=== PATIENT | female | born 1960 | race Caucasian/White ===

== ENCOUNTER 2016-11-11 07:59 | Emergency (ER) | payer OTHER ==
[~2016-11-11] VITALS: Ht 167.6 cm; Wt 65.9 kg
[~2016-11-11 07:59] MED LIST: BIOT1CAP8 PO; CALC600T9 PO; GABA-113 PO
[2016-11-11 08:01] VITALS: TEMP 36.9; Ht 167.6 cm; Wt 65.9 kg
[2016-11-11] MEDS ORDERED: LORAZEPAM 1 MG TAB SL STA (08:22)
[2016-11-11 08:46] LABS: BASO % 0.8 %; BASO ABS # 0.05 K/uL (0-0.2); COMPLETE YES; HEMATOCRIT 43.2 % (37-47); IG% 0.3 %; LYMPH % 27.9 %; LYMPH ABS # 1.73 K/uL (1.2-3.4); MEAN CORPUSCULAR HEMOGLOBIN 33.3 pg (25-34); MEAN CORPUSCULAR HGB CONC 34.7 g/dl (32-36); MEAN PLATELET VOLUME 9.8 fL (7.4-10.4); MONO % 5.5 %; NEUT % 61.5 %; PLATELET COUNT 248 K/uL (130-400); WHITE BLOOD COUNT 6.21 K/uL (4.8-10.8)
[2016-11-11] MEDS ORDERED: NORE1TAB34 PO (08:47)
--- NOTE | 2016-11-11 08:56 | DIAGNOSTIC IMAGING REPORT ---
SINGLE VIEW CHEST CLINICAL HISTORY: Atypical chest pain. Dyspnea. FINDINGS: An AP, portable, upright chest radiograph is obtained. No prior studies are available for comparison at the time of dictation. The examination is mildly degraded by portable technique and patient rotation. The cardiomediastinal silhouette is unremarkable. The lungs and pleural spaces are clear. No pneumothorax is seen. The skeletal structures appear osteopenic. The bony thorax is grossly intact. IMPRESSION: No active disease in the chest. Electronically signed by: Dex Armstrong M.D. 11/11/2016 8:55 AM Dictated Date/Time: 11/11/2016 8:54 AM
[2016-11-11 09:07] LABS: BUN/CREATININE RATIO 8.8 (10-20); CALCIUM 9.4 mg/dl (8.5-10.1); CREATININE 1.1 mg/dl (0.60-1.20); POTASSIUM 3.9 mmol/L (3.5-5.1)
[2016-11-11 09:12] LABS: CKMB/CK RATIO 0.9 (0-3.0)
[2016-11-11] MEDS ORDERED: ATV/1 PO (09:58)
[2016-11-11 10:46] VITALS: BP 118/79; PULSE 90; O2SAT 98
--- NOTE | 2016-11-11 16:16 | EMERGENCY ROOM VISIT NOTE ---
History First contact with patient: 08:09 Chief Complaint: CHEST PAIN Stated Complaint: CHEST PAINS, SOB, LIGHTHEADED, NAUSEA Nursing Triage Summary: Pt c/o chest heaviness and pain since last night, mid chest. SOB, nausea, lightheadedness. Cough, non productive History of Present Illness The patient is a 55 year old female who presents to the Emergency Room with complaints of chest pressure, shortness of breath, lightheadedness and nonproductive cough. The patient reports that she did have mild symptoms last evening. When she awoke this morning, the symptoms were worse. The patient reports that she has had pleurisy in the past, and reports that this almost feels the same. She denies any headaches, neck pain, significant sinus congestion, runny nose or sore throat. She rates her overall discomfort a 6 out of 10. Review of Systems HEENT: Denies visual problems, hearing loss, tinnitus. Denies difficulty swallowing or oral lesions. PULMONARY: Denies sputum production or hemoptysis. CARDIOVASCULAR: Denies palpitations, dyspnea on exertion, orthopnea or peripheral edema. GASTROINTESTINAL: Denies diarrhea, constipation, nausea, vomiting, or abdominal pain. GENITOURINARY: Denies dysuria, frequency, urgency or nocturia. NEUROLOGIC: Denies history of epilepsy, CVA, TIA or chronic headaches. MUSCULOSKELETAL: Denies history of joint tenderness/swelling. SKIN: Denies rashes or lesions. PSYCHIATRIC: Denies history of depression or mental illness. ENDOCRINE: Denies history of diabetes or thyroid disorders. Past Medical/Surgical History Medical Problems: (1) Lumbago (2) Nuclear Cataract (3) Postlaminect Synd-Cerv Surgical Problems: (1) History of cervical spinal surgery Family History FH: breast cancer FH: diabetes mellitus FH: heart disease Social History Smoking Status: Never Smoker Alcohol Use: occasionally Marital Status: Housing Status: lives with family Occupation Status: employed Current/Historical Medications Scheduled Biotin (Biotin), 1 CAP PO QAM Calcium Carbonate-Vitamin D (Calcium + D), 1 TAB PO QAM Gabapentin (Neurontin), 300 MG PO BID Norethindrone Acetate-Ethinyl (Jinteli), 1 TAB PO DAILY Scheduled PRN Lorazepam (Ativan), 1 TAB PO Q6H PRN for Anxiety Allergies Coded Allergies: Sulfa Drugs (Verified Allergy, Unknown, HIVES, 11/11/16) Uncoded Allergies: CRABS (Allergy, Unknown, SWELLING, 10/01/15) Physical Exam Vital Signs Date Time Temp Pulse Resp B/P Pulse Ox O2 Delivery O2 Flow Rate FiO2 11/11/16 10:46 90 18 118/79 98 11/11/16 08:24 106 11/11/16 08:04 97 Room Air 11/11/16 08:01 36.9 113 20 132/70 98 Room Air Physical Exam CONSTITUTIONAL: Healthy and well nourished. Alert and oriented X 3 with positive affect. Patient does not appear in any acute distress on exam. HEENT: Normocephalic, atraumatic. Pupils equal, round and reactive. Ears and nares are clear. OROPHARYNX: No posterior pharyngeal erythema or tonsillar hypertrophy. Mucous membranes are moist. NECK: Full active range of motion without discomfort. No JVD or carotid bruits. No nuchal rigidity. RESPIRATORY: Clear to auscultation bilaterally with no wheezing, crackles, rhonchi or stridor. CARDIOVASCULAR: Regular rate and rhythm with no murmurs, rubs or gallops. GASTROINTESTINAL: Bowel sounds present in all quadrants. Soft and nontender to palpation. MUSCULOSKELETAL: Full range of motion of all joints without discomfort. INTEGUMENTARY: No rash or other significant dermatologic conditions noted. HEMATOLOGIC: No ecchymosis or petechiae noted. NEUROLOGIC: No focal neurologic deficits noted. Medical Decision & Procedures ER Provider Diagnostic Interpretation: My interpretation of an ECG shows a normal sinus rhythm of [address] elevation or other conduction abnormalities. My interpretation of a portable chest x-ray does not show any consolidations, pneumothorax or cardiac prominence. Radiologist report is as follows: SINGLE VIEW CHEST CLINICAL HISTORY: Atypical chest pain. Dyspnea. FINDINGS: An AP, portable, upright chest radiograph is obtained. No prior studies are available for comparison at the time of dictation. The examination is mildly degraded by portable technique and patient rotation. The cardiomediastinal silhouette is unremarkable. The lungs and pleural spaces are clear. No pneumothorax is seen. The skeletal structures appear osteopenic. The bony thorax is grossly intact. IMPRESSION: No active disease in the chest. Laboratory Results 11/11/16 08:30 Red Blood Count 4.50, Mean Corpuscular Volume 96.0, Mean Corpuscular Hemoglobin 33.3, Mean Corpuscular Hemoglobin Concent 34.7, Mean Platelet Volume 9.8, Neutrophils (%) (Auto) 61.5, Lymphocytes (%) (Auto) 27.9, Monocytes (%) (Auto) 5.5, Eosinophils (%) (Auto) 4.0, Basophils (%) (Auto) 0.8, Neutrophils # (Auto) 3.82, Lymphocytes # (Auto) 1.73, Monocytes # (Auto) 0.34, Eosinophils # (Auto) 0.25, Basophils # (Auto) 0.05 11/11/16 08:30 Test 11/11/16 08:30 11/11/16 08:40 White Blood Count 6.21 K/uL (4.8-10.8) Red Blood Count 4.50 M/uL (4.2-5.4) Hemoglobin 15.0 g/dL (12.0-16.0) Hematocrit 43.2 % (37-47) Mean Corpuscular Volume 96.0 fL (80-100) Mean Corpuscular Hemoglobin 33.3 pg (25-34) Mean Corpuscular Hemoglobin Concent 34.7 g/dl (32-36) Platelet Count 248 K/uL (130-400) Mean Platelet Volume 9.8 fL (7.4-10.4) Neutrophils (%) (Auto) 61.5 % Lymphocytes (%) (Auto) 27.9 % Monocytes (%) (Auto) 5.5 % Eosinophils (%) (Auto) 4.0 % Basophils (%) (Auto) 0.8 % Neutrophils # (Auto) 3.82 K/uL (1.4-6.5) Lymphocytes # (Auto) 1.73 K/uL (1.2-3.4) Monocytes # (Auto) 0.34 K/uL (0.11-0.59) Eosinophils # (Auto) 0.25 K/uL (0-0.5) Basophils # (Auto) 0.05 K/uL (0-0.2) RDW Standard Deviation 43.0 fL (36.4-46.3) RDW Coefficient of Variation 12.2 % (11.5-14.5) Immature Granulocyte % (Auto) 0.3 % Immature Granulocyte # (Auto) 0.02 K/uL (0.00-0.02) Anion Gap 12.0 mmol/L (3-11) Est Creatinine Clear Calc Drug Dose 54.1 ml/min Estimated GFR () 65.5 Estimated GFR (Non- 56.5 BUN/Creatinine Ratio 8.8 (10-20) Calcium Level 9.4 mg/dl (8.5-10.1) Total Bilirubin 0.8 mg/dl (0.2-1) Direct Bilirubin 0.2 mg/dl (0-0.2) Aspartate Amino Transf (AST/SGOT) 21 U/L (15-37) Alanine Aminotransferase (ALT/SGPT) 30 U/L (12-78) Alkaline Phosphatase 66 U/L (45-117) Total Creatine Kinase 128 U/L (26-192) Creatine Kinase MB 1.1 ng/ml (0.5-3.6) Creatine Kinase MB Ratio 0.9 (0-3.0) Total Protein 8.0 gm/dl (6.4-8.2) Albumin 4.3 gm/dl (3.4-5.0) Lipase 161 U/L (73-393) Bedside D-Dimer 310 ng/mlFEU (0-450) Bedside Troponin I 0.000 ng/ml (0-0.045) The above labs were reviewed and are grossly normal. Bedside D-dimer and troponin were normal. Medications Administered Medications (Trade) Dose Ordered Sig/Susi Route Start Time Stop Time Status Last Admin Dose Admin Lorazepam (Ativan Tab) 1 mg NOW STAT SL 11/11/16 08:22 11/11/16 08:23 DC 11/11/16 08:55 1 MG ED Course Patient history and physical exam were performed. Nurse's notes were reviewed. Vital signs were reviewed and were normal. The patient appeared quite anxious on initial exam. She did request something for anxiety, and was administered Ativan 1 mg sublingual. IV access was established, and labs were drawn. ECG and portable chest x-ray were normal. Review of labs showed a normal d-dimer and troponin. Remaining labs were also reviewed and normal. The patient did report feeling much better at the end of the workup. The case was also discussed with Dr. Cruz, ED attending physician, who agrees with workup, and plan of care for outpatient follow-up. The patient was instructed to contact her PCP for reevaluation in the next 2-3 days. The patient did request a prescription for some additional medication for anxiety. The reports that she has been on previous medications in the past, and stated that they would also discuss this with her PCP on her next follow-up visit. The patient was instructed to return to the emergency department for any significantly worsening symptoms or developing fever. The patient was happy with plan of care, and voiced understanding of all discharge instructions. Medical Decision Patient presents to the emergency Department with primary complaint of chest pain, shortness of breath and lightheadedness. Her workup today is not suggestive of any significant acute cardiopulmonary etiology. Her ECG, although somewhat elevated rate throughout her visit, was normal. Her laboratory studies are not suggestive of pulmonary embolus or infarction. Chest x-ray does not show any evidence for pneumonia, pneumothorax or other significant findings. Additional lab work was also normal. At this point, I do feel that the patient is safe for outpatient management. Impression Primary Impression: Left sided chest pain Additional Impression: Shortness of breath Departure Information Prescriptions Lorazepam (ATIVAN) 1 Mg Tab 1 TAB PO Q6H Y for Anxiety, #10 TAB Prov: Marcelino Renae PA 11/11/16 Referrals Otis Downing M.D. (PCP) Patient Instructions [facility] Problem Qualifiers
== END 2016-11-11 10:47 | disposition home or self-care (01) ==
LOC: C.EDB 08:00 → C.EDA 10:47
DX: R07.89 Other chest pain (principal); R06.02 Shortness of breath; Z98.890 Other specified postprocedural states; Z79.899 Other long term (current) drug therapy; Z88.2 Allergy status to sulfonamides; Z91.018 Allergy to other foods; Z83.3 Family history of diabetes mellitus; Z80.3 Family history of malignant neoplasm of breast; Z82.49 Family history of ischemic heart disease and other diseases of the circulatory system

== ENCOUNTER → 2017-03-23 | Outpatient (CLI) | payer OTHER ==
[~2017-03-23] MED LIST changes: +NORE1TAB34 PO
--- NOTE | 2017-03-23 14:25 | DIAGNOSTIC IMAGING REPORT ---
RIGHT PELVIS UNILATERAL HIP 1 VIEW CLINICAL HISTORY: Right hip pain. COMPARISON: Pelvis radiograph June 14, 2015. FINDINGS: Spinal fusion hardware is partially imaged. Pelvic calcifications likely reflect phleboliths. There is no acute fracture within the pelvis or the hips although the iliac crests are not included on this exam. There is mild to moderate right hip joint space narrowing with osteophytosis. There is mild osteoarthritis of the left hip. The acetabula appear slightly shallow. IMPRESSION: 1. Mild to moderate osteoarthritis of the right hip. 2. No acute fracture. 3. Slightly shallow bilateral acetabula. Electronically signed by: Clemente Betancourt M.D. 03/23/2017 2:23 PM Dictated Date/Time: 03/23/2017 2:21 PM
== END | disposition home or self-care (01) ==
LOC: C.RDSM 13:20
PROVIDERS: ATTEND Physician Assistant
DX: R52 Pain, unspecified (principal); M16.11 Unilateral primary osteoarthritis, right hip

== ENCOUNTER → 2017-06-10 | Day surgery (SDC) | payer OTHER ==
[2017-06-08 13:20] VITALS: Ht 168.9 cm; Wt 65.9 kg
[~2017-06-10] VITALS: Ht 168.9 cm; Wt 65.9 kg
[~2017-06-10] MED LIST changes: +BUPIVACAINE 0.25% 2.5MG/ML PF 10 ML VIAL ONE; +IOPAMIDOL INJ 61% 15 ML VIAL ONE; +LIDOCAINE HCL 1% MPF 5 ML VIAL ONE
[2017-06-10 14:40] VITALS: TEMP 36.8
--- NOTE | 2017-06-10 15:52 | History & Physical Bridge - SC ---
H&P Re-Evaluation Bridge Note: I have examined the patient, reviewed the History & Physical and in the interval since the performance of the History & Physical I have noted the following changes of clinical significance: No changes noted
[2017-06-10 16:11] VITALS: BP 140/104; PULSE 107; O2SAT 100
--- NOTE | 2017-06-10 16:18 | Discharge Instructions ---
Discharge Instructions Date of Service Jun 10, 2017. Visit Reason for Visit: Sacroiliitis Discharge Discharge Diagnosis / Problem: Low back pain Discharge Goals Goal(s): Decrease discomfort, Improve function Activity Recommendations Activity Limitations: resume your previous activity Anesthesia . Post Anesthesia Instructions: If you have had General Anesthesia or IV Sedation: * Do not drive today. * Resume driving when surgeon permits. * Do not make important decisions or sign legal documents today. * Call surgeon for: 1. Temperature elevations greater than 101 degrees F. 2. Uncontrollable pain. 3. Excessive bleeding. 4. Persistent nausea and vomiting. 5. Medication intolerance (nausea, vomiting or rash). * For nausea and vomiting use only clear liquids such as: tea, soda, bouillon until nausea subsides, then gradually increase diet as tolerated. * If you have any concerns or questions, call your surgeon's office. If physician is unavailable and it is an emergency, call 911 or go to the nearest emergency room. . Diet Recommendations Recommended Home Diet: resume previous diet Procedures Procedures Performed: RIGHT SACROILIAC JOINT INJECTION. Pending Studies Studies pending at discharge: no Medical Emergencies . Who to Call and When: Medical Emergencies: If at any time you feel your situation is an emergency, please call 911 immediately. . Non-Emergent Contact Non-Emergency issues call your: Specialist . . "Provider Documentation" section prepared by Isai Vallejo. .
--- NOTE | 2017-06-10 19:21 | OPERATIVE REPORT ---
DATE OF OPERATION: 06/10/2017 PREOPERATIVE DIAGNOSIS: Right sacroiliitis, history of a lumbar fusion and decompression. POSTOPERATIVE DIAGNOSIS: Same. PROCEDURE: Right sacroiliac joint injection under fluoroscopic guidance. INDICATIONS: The patient is a 56-year-old white female who has received SI joint injections in the past, last one about 9 months to a year ago with good results; however, she has had an increase in right SI joint pain. Presents today for an injection to provide her with relief. PHYSICAL EXAMINATION: Pleasant female seated comfortably. She has point tenderness to palpation of her right SI joint. It is worse with extension. She has normal motor and sensory examination of the lower extremity. CONSENT: Verbal and written consent was obtained from the patient. Risks and benefits were reviewed. Risks include but are not limited to abscess and allergic reaction. The patient wishes to proceed. PROCEDURE: The patient was taken back to the special procedures room of the [facility] where she was maintained in a prone position. Backside was cleansed with Betadine x3 and a dry sterile dressing was applied. Fluoroscope was used to identify the right sacroiliac joint and the overlying skin was anesthetized with 2.5 mL of lidocaine 1% with a 25 gauge 1.5-inch needle. A 25 gauge 3.5 inch spinal needle was then directed into the sacroiliac joint. Isovue-300 contrast 0.25 mL was injected in which demonstrated intraarticular uptake entirely within the joint. She then underwent injection after negative aspiration of 40 mg of Depo-Medrol and 1.5 mL of bupivacaine 0.25%. Injection was well tolerated. DISPOSITION: 1. The patient was taken out into the discharge recovery area where she will be discharged home once discharge criteria have been met. 2. Follow up in the [facility] office in 2-4 weeks. I attest to the content of the Intraoperative Record and any orders documented therein. Any exception s are noted below.
== END | disposition home or self-care (01) ==
LOC: X.SURG 13:51
PROVIDERS: ATTEND Physical Medicine & Rehabilitation
DX: M46.1 Sacroiliitis, not elsewhere classified (principal); M54.18 Radiculopathy, sacral and sacrococcygeal region; Z79.899 Other long term (current) drug therapy

== ENCOUNTER → 2017-06-29 | Outpatient (CLI) | payer OTHER ==
[~2017-06-29] MED LIST changes: -BUPIVACAINE 0.25% 2.5MG/ML PF 10 ML VIAL ONE; -IOPAMIDOL INJ 61% 15 ML VIAL ONE; -LIDOCAINE HCL 1% MPF 5 ML VIAL ONE
--- NOTE | 2017-06-30 08:14 | MAMMOGRAPHY REPORT ---
BILATERAL DIGITAL SCREENING MAMMOGRAM TOMOSYNTHESIS WITH CAD: 06/29/2017 CLINICAL HISTORY: Routine screening. Patient has no complaints. TECHNIQUE: Breast tomosynthesis in addition to standard 2D mammography was performed. Current study was also evaluated with a Computer Aided Detection (CAD) system. COMPARISON: Comparison is made to exams dated: 05/27/2016 mammogram, 05/16/2015 mammogram, 02/21/2014 m ammogram, 01/13/2012 mammogram - [facility], 04/05/2009, and 02/03/2008. BREAST COMPOSITION: There are scattered areas of fibroglandular density in both breasts. FINDINGS: The parenchymal pattern is similar to prior mammograms. No developing mass, architectural distortion or cluster of suspicious microcalcifications is seen in either breast. IMPRESSION: ACR BI-RADS CATEGORY 2: BENIGN There is no mammographic evidence of malignancy. A 1 year screening mammogram is recommended. The pa tient will receive written notification of the results. Approximately 10% of breast cancers are not detected with mammography. A negative mammographic report should not delay biopsy if a clinically suggestive mass is present. Tonya Cruz M.D. ay/:06/29/2017 18:00:20 Bracer: Krystal AYOUB(Dl)(Lexii)(BD), [facility] letter sent: Normal 1/2 BI-RADS Code: ACR BI-RADS Category 2: Benign
== END | disposition home or self-care (01) ==
LOC: C.MAMM 14:47
PROVIDERS: ATTEND Obstetrics & Gynecology
DX: Z12.31 Encounter for screening mammogram for malignant neoplasm of breast (principal)

== ENCOUNTER → 2017-09-30 | Outpatient (CLI) | payer OTHER ==
[~2017-09-30] MED LIST changes: +IBUP1TAB55 PO; +PRVHFAIN INH; +TRAM-10 PO
--- NOTE | 2017-09-30 15:13 | DIAGNOSTIC IMAGING REPORT ---
R FOOT MIN 3 VIEWS ROUTINE CLINICAL HISTORY: RIGHT FOOT PAIN trauma. Pain. COMPARISON: None. DISCUSSION: The bones and joint spaces appear intact. There is no evidence of fracture, dislocation or bony disease. There is no evidence for soft tissue swelling. IMPRESSION: Negative study. The above report was generated using voice recognition software. It may contain grammatical, syntax or spelling errors. Electronically signed by: Nithin Figueredo M.D. 09/30/2017 3:12 PM Dictated Date/Time: 09/30/2017 3:11 PM
--- NOTE | 2017-10-22 11:36 | CODING QUERY NO DIAGNOSIS ---
TREATMENT RENDERED WITHOUT A DIAGNOSIS To promote full compliance with coding requirements relating to patient care, physician participation is requested in all cases of gasket former uncertainty. Please assist us with providing a diagnosis/symptom for the test(s) below: A diagnosis/symptom was not documented on your Order. A valid diagnosis/symptom is required to bill all insurances. Please remember that we are unable to code a diagnosis of rule out, probable, possible, questionable, or suspected. Tests that require a diagnosis: DOS: 09/30/17 * FOOT MIN VIEWS ROUTINE DIAGNOSIS: Provider Signature: Date: Thank you Angelica Doan [employer] Once completed, please kindly fax back to [phone] For questions please call [phone]
== END | disposition home or self-care (01) ==
LOC: C.RAD1850 14:49
PROVIDERS: ATTEND Chiropractor
DX: Z01.89 Encounter for other specified special examinations (principal)

== ENCOUNTER 2017-11-30 14:49 | Inpatient (IN) | payer OTHER ==
[2017-11-16 14:22] VITALS: BMI 23.0
[~2017-11-30] VITALS: Ht 167.6 cm; Wt 65.6 kg
--- NOTE | 2017-11-30 14:59 | EMERGENCY ROOM VISIT NOTE ---
History First contact with patient: 14:57 Chief Complaint: RESPIRATORY PROBLEMS Stated Complaint: WHEEZING, COUGHING, SOB History of Present Illness The patient is a 57 year old female who presents to the Emergency Room via private vehicle accompanied by male with complaints of "wheezing, coughing, shortness of breath". The patient states that she has had increased shortness of breath over the past few nights. She has a history of asthma and has been using her rescue inhaler with minimal relief. Her last asthma attack was 1.5 years ago and notes this feels identical. She states that typically she received nebulizer treatments and steroids with relief. She is unsure the exacerbating nature to this flare. She has associated headache. There is no nausea, vomiting, fever, chest pain, history of heart disease, cold symptoms, or sick contacts. She did receive her influenza vaccination. There is no recent leg swelling or history of PE/clots. Review of Systems A complete 10-point Review of Systems was discussed with the patient, with pertinent positives and negatives listed in the History of Present Illness. All remaining Review of Systems questions can be considered negative unless otherwise specified. Past Medical/Surgical History Medical Problems: (1) Asthma exacerbation (2) Lumbago (3) Nuclear Cataract (4) Postlaminect Synd-Cerv Surgical Problems: (1) History of cervical spinal surgery Family History FH: breast cancer FH: diabetes mellitus FH: heart disease Social History Smoking Status: Never Smoker Alcohol Use: occasionally Marital Status: Housing Status: lives with family Occupation Status: employed Current/Historical Medications Scheduled Biotin (Biotin), 1 CAP PO ON HOLD Calcium Carbonate-Vitamin D (Calcium + D), 1 TAB PO ON HOLD Gabapentin (Neurontin), 2 CAP PO HS Ibuprofen-Diphenhydramine Citr (Ibuprofen Pm), 2 TAB PO ON HOLD Norethindrone Acetate-Ethinyl (Jinteli), 1 TAB PO QPM Tramadol (Ultram), 1 TAB PO QAM Scheduled PRN Albuterol (Ventolin Hfa), 2 PUFF INH Q4HRS PRN for SOB/Wheezing Diphenhydramine Hcl (Benadryl Allergy), 1 CAP PO Q4H PRN for Allergic Reaction Physical Exam Vital Signs Date Time Temp Pulse Resp B/P (MAP) Pulse Ox O2 Delivery O2 Flow Rate FiO2 11/30/17 18:38 36.7 122 24 141/84 97 11/30/17 18:30 120/83 11/30/17 18:15 126 19 99 Room Air 11/30/17 18:10 122 24 97 Room Air 11/30/17 17:40 128 15 99 Room Air 11/30/17 17:35 124 17 100 Room Air 11/30/17 17:31 141/84 11/30/17 17:05 114 19 100 Room Air 11/30/17 17:00 135/81 11/30/17 16:49 102 18 99 Room Air 11/30/17 16:42 121 11/30/17 16:37 112 16 107/81 98 Room Air 11/30/17 16:37 107/81 11/30/17 16:29 108 16 98 Room Air 11/30/17 15:27 96 Room Air 11/30/17 14:54 36.7 133 19 129/82 96 Room Air Physical Exam VITAL SIGNS - Vital signs and nursing notes were reviewed. Stable. Tachycardic. GENERAL - 57-year-old female appearing her stated age who is in no acute distress. Communicates well with provider but does speak in slightly abbreviated sentences as well as taking larger breaths and answers questions appropriately. SKIN - Without rashes. LUNGS - Chest wall symmetric without accessory muscle use, intercostals retractions, or central cyanosis. Lower wheezing noted bilaterally in bases. CARDIAC - RRR with S1/S2. No murmur, rubs, or gallops appreciated. Medical Decision & Procedures ER Provider Diagnostic Interpretation: CHEST 2 VIEWS ROUTINE CLINICAL HISTORY: wheezing dyspnea COMPARISON STUDY: 11/24/2017 FINDINGS: The bones soft tissues and hemidiaphragms are normal. The cardiomediastinal silhouette is normal. The lungs are clear. The pulmonary vasculature is normal. IMPRESSION: Negative chest. The above report was generated using voice recognition software. It may contain grammatical, syntax or spelling errors. Electronically signed by: Nithin Figueredo M.D. 11/30/2017 4:06 PM Dictated Date/Time: 11/30/2017 4:06 PM Laboratory Results 11/30/17 15:20 Red Blood Count 4.47, Mean Corpuscular Volume 96.4, Mean Corpuscular Hemoglobin 33.6, Mean Corpuscular Hemoglobin Concent 34.8, Mean Platelet Volume 9.5, Neutrophils (%) (Auto) 62.7, Lymphocytes (%) (Auto) 21.6, Monocytes (%) (Auto) 5.1, Eosinophils (%) (Auto) 9.4, Basophils (%) (Auto) 0.7, Neutrophils # (Auto) 6.84, Lymphocytes # (Auto) 2.36, Monocytes # (Auto) 0.56, Eosinophils # (Auto) 1.03, Basophils # (Auto) 0.08 11/30/17 15:20 Test 11/30/17 15:20 White Blood Count 10.92 K/uL (4.8-10.8) Red Blood Count 4.47 M/uL (4.2-5.4) Hemoglobin 15.0 g/dL (12.0-16.0) Hematocrit 43.1 % (37-47) Mean Corpuscular Volume 96.4 fL (80-100) Mean Corpuscular Hemoglobin 33.6 pg (25-34) Mean Corpuscular Hemoglobin Concent 34.8 g/dl (32-36) Platelet Count 324 K/uL (130-400) Mean Platelet Volume 9.5 fL (7.4-10.4) Neutrophils (%) (Auto) 62.7 % Lymphocytes (%) (Auto) 21.6 % Monocytes (%) (Auto) 5.1 % Eosinophils (%) (Auto) 9.4 % Basophils (%) (Auto) 0.7 % Neutrophils # (Auto) 6.84 K/uL (1.4-6.5) Lymphocytes # (Auto) 2.36 K/uL (1.2-3.4) Monocytes # (Auto) 0.56 K/uL (0.11-0.59) Eosinophils # (Auto) 1.03 K/uL (0-0.5) Basophils # (Auto) 0.08 K/uL (0-0.2) RDW Standard Deviation 43.3 fL (36.4-46.3) RDW Coefficient of Variation 12.4 % (11.5-14.5) Immature Granulocyte % (Auto) 0.5 % Immature Granulocyte # (Auto) 0.05 K/uL (0.00-0.02) Prothrombin Time 9.8 SECONDS (9.0-12.0) Prothromb Time International Ratio 0.9 (0.9-1.1) Activated Partial Thromboplast Time 24.5 SECONDS (21.0-31.0) Partial Thromboplastin Ratio 0.9 Anion Gap 8.0 mmol/L (3-11) Est Creatinine Clear Calc Drug Dose 61.1 ml/min Estimated GFR () 75.1 Estimated GFR (Non- 64.8 BUN/Creatinine Ratio 9.1 (10-20) Calcium Level 9.5 mg/dl (8.5-10.1) Magnesium Level 2.2 mg/dl (1.8-2.4) Total Bilirubin 0.5 mg/dl (0.2-1) Aspartate Amino Transf (AST/SGOT) 21 U/L (15-37) Alanine Aminotransferase (ALT/SGPT) 28 U/L (12-78) Alkaline Phosphatase 74 U/L (45-117) Troponin I < 0.015 ng/ml (0-0.045) Total Protein 8.0 gm/dl (6.4-8.2) Albumin 4.2 gm/dl (3.4-5.0) Globulin 3.8 gm/dl (2.5-4.0) Albumin/Globulin Ratio 1.1 (0.9-2) Medications Administered Medications (Trade) Dose Ordered Sig/Susi Route Start Time Stop Time Status Last Admin Dose Admin Albuterol/ Ipratropium (Duoneb) 3 ml NOW STAT INH 11/30/17 15:10 11/30/17 15:13 DC 11/30/17 15:27 3 ML Albuterol/ Ipratropium (Duoneb) 12 ml ONE STAT INH 11/30/17 15:50 11/30/17 15:52 DC 11/30/17 16:28 12 ML Sodium Chloride 1,000 ml @ 999 mls/hr Q1H1M STAT IV 11/30/17 15:51 11/30/17 16:51 DC 11/30/17 16:35 999 MLS/HR Acetaminophen (Tylenol Tab) 325 mg NOW STAT PO 11/30/17 15:51 11/30/17 15:53 DC 11/30/17 16:32 325 MG Medical Decision Patient was seen and evaluated as above. She presents to us today with wheezing , and shortness of breath. She notes a history of asthma, and states this is identical to previous exacerbations. After obtaining a thorough history and physical examination the above work up was performed. Two-view chest is negative. Bedside EKG performed and reveals no evidence per my interpretation of ectopy, ischemic change or concerning event. It was tachycardia, with a nonspecific ST segment abnormality. She was given a 15 minute nebulizer with minimal relief. She was then given an hour-long treatment feeling better but jittery. I did refrain from providing steroids as she does have a hip replacement scheduled for tomorrow. Per patient request, I did have anesthesia come down to evaluate the patient. It was felt that the patient would be better served with inpatient management, control of her asthma with potential reevaluation by anesthesia tomorrow to identify if she could have the surgery. I do believe this is reasonable. There is only minimal leukocytosis. No anemia. Coags normal. Patient's metabolic panel reveals no evidence of kidney or liver failure. Troponin negative. She will be admitted for further evaluation and management secondary to persistent asthma exacerbation with the hour-long DuoNeb. Case was discussed with the attending physician In the evaluation and treatment of this patient the following differential diagnoses were entertained: LA, PE, asthma exacerbation, pneumonia, bronchitis, influenza, among others. Impression Primary Impression: Asthma exacerbation Departure Information Referrals Otis Downing M.D. (PCP) Patient Instructions [facility]
[2017-11-30] MEDS ORDERED: ALBUT/IPRATROP 3MG/0.5MG NEB 3 ML VIAL INH STA ×2 (15:10→15:50)
[2017-11-30] MEDS ORDERED: DIPH25CA65 PO (15:30)
[2017-11-30 15:33] LABS: BASO % 0.7 %; BASO ABS # 0.08 K/uL (0-0.2); EOS % 9.4 %; EOS ABS # 1.03 K/uL (0-0.5); HEMATOCRIT 43.1 % (37-47); IG# 0.05 K/uL (0.00-0.02); LYMPH % 21.6 %; LYMPH ABS # 2.36 K/uL (1.2-3.4); MEAN CELL VOLUME 96.4 fL (80-100); MEAN CORPUSCULAR HEMOGLOBIN 33.6 pg (25-34); MEAN CORPUSCULAR HGB CONC 34.8 g/dl (32-36); MEAN PLATELET VOLUME 9.5 fL (7.4-10.4); MONO % 5.1 %; MONO ABS # 0.56 K/uL (0.11-0.59); NEUT % 62.7 %; NEUT ABS # 6.84 K/uL (1.4-6.5); PLATELET COUNT 324 K/uL (130-400); RED CELL DISTRIBUTION WIDTH CV 12.4 % (11.5-14.5); RED CELL DISTRIBUTION WIDTH SD 43.3 fL (36.4-46.3); WHITE BLOOD COUNT 10.92 K/uL (4.8-10.8)
[2017-11-30 15:43] LABS: INR 0.9 (0.9-1.1); PTT PATIENT 24.5 SECONDS (21.0-31.0)
[2017-11-30 15:51] LABS: ALBUMIN 4.2 gm/dl (3.4-5.0); ALT/SGPT 28 U/L (12-78); BLOOD UREA NITROGEN 9 mg/dl (7-18); CALCIUM 9.5 mg/dl (8.5-10.1); CARBON DIOXIDE 24 mmol/L (21-32); CREATININE 0.97 mg/dl (0.60-1.20); GLUCOSE 117 mg/dl (70-99); POTASSIUM 3.7 mmol/L (3.5-5.1); SODIUM 139 mmol/L (136-145)
[2017-11-30] MEDS ORDERED: SODIUM CHLORIDE 0.9% 1000ML 1,000 ML IV STA (15:51)
[2017-11-30] MEDS ORDERED: ACETAMINOPHEN 325 MG TAB PO STA (15:51)
[2017-11-30 15:56] LABS: ALKALINE PHOSPHATASE 74 U/L (45-117); AST/SGOT 21 U/L (15-37)
--- NOTE | 2017-11-30 16:07 | DIAGNOSTIC IMAGING REPORT ---
CHEST 2 VIEWS ROUTINE CLINICAL HISTORY: wheezing dyspnea COMPARISON STUDY: 11/24/2017 FINDINGS: The bones soft tissues and hemidiaphragms are normal. The cardiomediastinal silhouette is normal. The lungs are clear. The pulmonary vasculature is normal. IMPRESSION: Negative chest. The above report was generated using voice recognition software. It may contain grammatical, syntax or spelling errors. Electronically signed by: Nithin Figueredo M.D. 11/30/2017 4:06 PM Dictated Date/Time: 11/30/2017 4:06 PM
[2017-11-30 16:29] VITALS: PULSE 108; O2SAT 98
[2017-11-30] MEDS ORDERED: LORAZEPAM 0.5 MG TAB PO STA (18:13)
[2017-11-30] MEDS ORDERED: ACETAMINOPHEN 325 MG TAB PO PRN (18:15)
[2017-11-30] MEDS ORDERED: ONDANSETRON INJ 2 MG/ML 2 ML VIAL IV PRN (18:15)
[2017-11-30] MEDS ORDERED: LEVALBUTEROL 1.25MG/0.5ML NEB INH PRN (18:30)
[2017-11-30] MEDS ORDERED: IV FLUIDS COMPLETED PRN (18:30)
[2017-11-30 18:50] VITALS: BP 129/72; PULSE 109; TEMP 36.8; Ht 167.6 cm; Wt 65.6 kg
--- NOTE | 2017-11-30 19:15 | History and Physical ---
History & Physical Date & Time of Service: Nov 30, 2017 at 18:58 Chief Complaint: Cough, Shortness of Breath, Wheezing Primary Care Physician: Otis Downing M.D. History of Present Illness 57 year old female who presents to the ED with cough, shortness of breath, and wheezing. Patient has history of asthma which she reports is typically well controlled. Has not had an exacerbation in about one year. She reports about two days ago she developed cough, wheezing, and shortness of breath. She has has been using her albuterol inhaler without much relief. She reports cough has been non productive. No fevers or chills. She denies chest pain. She currently reports some palpitations from the nebulizer treatment. No abdominal pain, nausea, vomiting, or diarrhea. She denies urinary symptoms. In the ED, patient is saturating well on room air. She improved greatly with hour long nebulizer treatment. Of note, patient is scheduled for elective right CHIDI tomorrow. Anesthesia evaluated the patient who advised overnight observation. Past Medical/Surgical History Medical Problems: (1) Intermittent asthma Status: Chronic Surgical Problems: (1) History of cataract surgery Status: Chronic (2) History of cervical spinal surgery Status: Chronic (3) History of lumbar fusion Status: Chronic (4) Hx of tonsillectomy Status: Chronic Family History FH: breast cancer FH: diabetes mellitus FH: heart disease Social History Smoking Status: Never Smoker Alcohol Use: socially Immunizations History of Influenza Vaccine: Yes Influenza Vaccine Date: Jun 04, 2017 History of Tetanus Vaccine?: Yes Tetanus Immunization Date: Jul 24, 2013 Allergies Coded Allergies: Sulfa Drugs (Verified Allergy, Unknown, HIVES, 11/16/17) Uncoded Allergies: CRABS (Allergy, Unknown, SWELLING, 10/01/15) Home Medications Scheduled Biotin (Biotin), 1 CAP PO ON HOLD Calcium Carbonate-Vitamin D (Calcium + D), 1 TAB PO ON HOLD Gabapentin (Neurontin), 2 CAP PO HS Ibuprofen-Diphenhydramine Citr (Ibuprofen Pm), 2 TAB PO ON HOLD Norethindrone Acetate-Ethinyl (Jinteli), 1 TAB PO QPM Tramadol (Ultram), 1 TAB PO QAM Scheduled PRN Albuterol (Ventolin Hfa), 2 PUFF INH Q4HRS PRN for SOB/Wheezing Diphenhydramine Hcl (Benadryl Allergy), 1 CAP PO Q4H PRN for Allergic Reaction Review of Systems ROS per HPI, all other systems reviewed and negative Physical Exam Vital Signs Date Time Temp Pulse Resp B/P (MAP) Pulse Ox O2 Delivery O2 Flow Rate FiO2 11/30/17 18:38 36.7 122 24 141/84 97 11/30/17 18:30 120/83 11/30/17 18:15 126 19 99 Room Air 11/30/17 18:10 122 24 97 Room Air 11/30/17 17:40 128 15 99 Room Air 11/30/17 17:35 124 17 100 Room Air 11/30/17 17:31 141/84 11/30/17 17:05 114 19 100 Room Air 11/30/17 17:00 135/81 11/30/17 16:49 102 18 99 Room Air 11/30/17 16:42 121 11/30/17 16:37 112 16 107/81 98 Room Air 11/30/17 16:37 107/81 11/30/17 16:29 108 16 98 Room Air 11/30/17 15:27 96 Room Air 11/30/17 14:54 36.7 133 19 129/82 96 Room Air General Appearance: WD/WN, no apparent distress Head: normocephalic, atraumatic Eyes: normal inspection, EOMI, sclerae normal ENT: hearing grossly normal, + pertinent finding (mucous membranes moist) Neck: supple, no JVD, trachea midline Respiratory/Chest: lungs clear, normal breath sounds, no respiratory distress, + pertinent finding Cardiovascular: no edema, normal peripheral pulses, + tachycardia (regular rhythm) Abdomen/GI: normal bowel sounds, non tender, soft, no organomegaly Extremities/Musculoskelatal: normal inspection, no calf tenderness, normal capillary refill Neurologic/Psych: no motor/sensory deficits, alert, normal mood/affect, oriented x 3 Skin: normal color, warm/dry Diagnostics Laboratory Results Results Past 24 Hours Test 11/30/17 15:20 Range/Units White Blood Count 10.92 4.8-10.8 K/uL Red Blood Count 4.47 4.2-5.4 M/uL Hemoglobin 15.0 12.0-16.0 g/dL Hematocrit 43.1 37-47 % Mean Corpuscular Volume 96.4 80-100 fL Mean Corpuscular Hemoglobin 33.6 25-34 pg Mean Corpuscular Hemoglobin Concent 34.8 32-36 g/dl Platelet Count 324 130-400 K/uL Mean Platelet Volume 9.5 7.4-10.4 fL Neutrophils (%) (Auto) 62.7 % Lymphocytes (%) (Auto) 21.6 % Monocytes (%) (Auto) 5.1 % Eosinophils (%) (Auto) 9.4 % Basophils (%) (Auto) 0.7 % Neutrophils # (Auto) 6.84 1.4-6.5 K/uL Lymphocytes # (Auto) 2.36 1.2-3.4 K/uL Monocytes # (Auto) 0.56 0.11-0.59 K/uL Eosinophils # (Auto) 1.03 0-0.5 K/uL Basophils # (Auto) 0.08 0-0.2 K/uL RDW Standard Deviation 43.3 36.4-46.3 fL RDW Coefficient of Variation 12.4 11.5-14.5 % Immature Granulocyte % (Auto) 0.5 % Immature Granulocyte # (Auto) 0.05 0.00-0.02 K/uL Prothrombin Time 9.8 9.0-12.0 SECONDS Prothromb Time International Ratio 0.9 0.9-1.1 Activated Partial Thromboplast Time 24.5 21.0-31.0 SECONDS Partial Thromboplastin Ratio 0.9 Sodium Level 139 136-145 mmol/L Potassium Level 3.7 3.5-5.1 mmol/L Chloride Level 106 98-107 mmol/L Carbon Dioxide Level 24 21-32 mmol/L Anion Gap 8.0 3-11 mmol/L Blood Urea Nitrogen 9 7-18 mg/dl Creatinine 0.97 0.60-1.20 mg/dl Est Creatinine Clear Calc Drug Dose 61.1 ml/min Estimated GFR () 75.1 Estimated GFR (Non- 64.8 BUN/Creatinine Ratio 9.1 10-20 Random Glucose 117 70-99 mg/dl Calcium Level 9.5 8.5-10.1 mg/dl Magnesium Level 2.2 1.8-2.4 mg/dl Total Bilirubin 0.5 0.2-1 mg/dl Aspartate Amino Transf (AST/SGOT) 21 15-37 U/L Alanine Aminotransferase (ALT/SGPT) 28 12-78 U/L Alkaline Phosphatase 74 45-117 U/L Troponin I < 0.015 0-0.045 ng/ml Total Protein 8.0 6.4-8.2 gm/dl Albumin 4.2 3.4-5.0 gm/dl Globulin 3.8 2.5-4.0 gm/dl Albumin/Globulin Ratio 1.1 0.9-2 Diagnostic Radiology CXR IMPRESSION: Negative chest. Impression Assessment and Plan ASTHMA EXACERBATION - admit to tele - patient presenting with cough, wheeze, and shortness of breath x 3 days - saturating well on room air in the ED, CXR clear - patient did not have any wheezing at the time of my exam however did re- develop wheezing at the time of Dr. Alvarez' exam - check flu swab - will start low dose steroids - around the clock nebs - anesthesia evaluated patient in the ED in light of planned hip surgery tomorrow - will re-evaluate patient in the ED RIGHT HIP OSTEOARTHRITIS - scheduled for CHIDI tomorrow DVT PROPHYLAXIS - SCDs in light of possible surgery tomorrow DISPO - Observation status for now; further dispo pending on patient's hip surgery Resuscitation Status VTE Prophylaxis Will order VTE Prophylaxis: Yes Note ATTENDING ADDENDUM Record reviewed. Patient interviewed and examined. Care coordinated with AZALIA Rendon. Please refer to her documentation for patient's history. Briefly, 57-year-old female with asthma. Presented to ED with 2 days of nonproductive cough, wheezing, dyspnea. EXAM: General- coughing; no acute distress Lungs- diffuse moderate wheezing, especially with forced expiration Cardiovascular- RRR, tachy Abdomen- + bowel sounds, soft, nontender Extremities- no cyanosis; no calf tenderness Neuro- alert, oriented Skin- warm & dry . DATA: Lab studies as noted. Chest x-ray negative. 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 ASSESSMENT AND PLAN: Exacerbation of asthma, most likely secondary to viral respiratory tract infection. No evidence of pneumonia on chest x-ray Influenza PCR negative. Treat with IV methylprednisolone and nebulizer treatments. No indication for antibiotics or antiviral medications at this time Patient is scheduled for total hip arthroplasty tomorrow. Disposition for surgery will depend on her status in the morning. Please refer to YAHIR Jarquin's documentation for discussion of other issues. Dyllan Alvarez MD .
[2017-11-30] MEDS: METHYLPREDNISOLONE IV 20 MG in SYRINGE 0 ML IV SCH (19:52)
[2017-11-30] MEDS: OXYCODONE/ACETAMINOPHEN 5-325 TAB PO PRN (19:59)
[2017-11-30 20:15] LABS: INFLUENZA A PCR Neg for Influ A (NEG); INFLUENZA B PCR Neg for Influ B (NEG)
[2017-11-30] MEDS: LEVALBUTEROL 1.25MG/0.5ML NEB INH SCH (21:00)
[2017-11-30] MEDS: GABAPENTIN 300 MG CAP PO SCH (21:07)
[2017-11-30 22:14] VITALS: PULSE 73; O2SAT 97
[2017-12-01] VITALS (14 sets, daily range): BP systolic 102–151; BP diastolic 44–84; PULSE 88–117; TEMP 36.4–36.9; O2SAT 94–100
[2017-12-01] MEDS: OXYCODONE/ACETAMINOPHEN 5-325 TAB PO PRN (00:03)
[2017-12-01] MEDS: LEVALBUTEROL 1.25MG/0.5ML NEB INH SCH ×5 (02:11→19:55)
[2017-12-01 06:23] LABS: MEAN CELL VOLUME 96.2 fL (80-100); MEAN CORPUSCULAR HEMOGLOBIN 32.9 pg (25-34); MEAN CORPUSCULAR HGB CONC 34.2 g/dl (32-36); MEAN PLATELET VOLUME 9.3 fL (7.4-10.4); PLATELET COUNT 274 K/uL (130-400); RED CELL DISTRIBUTION WIDTH CV 12.6 % (11.5-14.5); WHITE BLOOD COUNT 7.78 K/uL (4.8-10.8)
[2017-12-01] MEDS: METHYLPREDNISOLONE IV 20 MG in SYRINGE 0 ML IV SCH ×2 (06:32→21:09)
[2017-12-01 07:02] LABS: CREATININE 0.81 mg/dl (0.60-1.20)
--- NOTE | 2017-12-01 09:31 | Progress Note ---
Internal Med Progress Note Date of Service: Dec 01, 2017. Provider Documentation: SUBJECTIVE: The patient was seen and examined Admitted with Cough and Wheezing Has Avascular necrosis of the right Hip and going for surgery today Denies any symptoms this morning OBJECTIVE: Vital Signs-as noted below Exam: General-No distress at rest Eyes-Normal ENT-normal Neck-supple Lungs-Clear to ausucltate bilaterally Heart-Regular,no murmur appreciated Abdomen-Benign,no masses Extremities-No edema Neuro-AAOx3 No focal neuro deficit Lab data as noted below. ASSESSMENT & PLAN: ASTHMA EXACERBATION - patient presenting with cough, wheeze, and shortness of breath x 3 days - saturating well on room air in the ED, CXR clear - check flu swab-negative - has been on low dose steroid - Nebs -no medical contraindication for proposed surgery RIGHT HIP OSTEOARTHRITIS -with avascular necrosis - scheduled for CHIDI this AM -no contraindication for proposed surgery-under spinal DVT PROPHYLAXIS - SCDs in light of possible surgery tomorrow DISPO - Observation status for now; further dispo pending on patient's hip surgery Vital Signs: Date Time Temp Pulse Resp B/P (MAP) Pulse Ox O2 Delivery O2 Flow Rate FiO2 12/01/17 08:02 36.7 101 20 151/84 (106) 98 Room Air 12/01/17 08:00 Room Air 12/01/17 07:04 102 16 97 Room Air 12/01/17 05:13 88 16 95 Room Air 12/01/17 04:00 Room Air 12/01/17 03:12 36.8 99 19 116/76 (89) 97 Room Air 12/01/17 00:05 36.4 103 18 132/76 (94) 98 Room Air 12/01/17 00:00 Room Air 11/30/17 22:14 73 16 97 Room Air 11/30/17 18:50 36.8 109 22 129/72 Room Air 97 11/30/17 18:38 36.7 122 24 141/84 97 11/30/17 18:30 120/83 11/30/17 18:15 126 19 99 Room Air 11/30/17 18:10 122 24 97 Room Air 11/30/17 17:40 128 15 99 Room Air 11/30/17 17:35 124 17 100 Room Air 11/30/17 17:31 141/84 11/30/17 17:05 114 19 100 Room Air 11/30/17 17:00 135/81 11/30/17 16:49 102 18 99 Room Air 11/30/17 16:42 121 11/30/17 16:37 112 16 107/81 98 Room Air 11/30/17 16:37 107/81 11/30/17 16:29 108 16 98 Room Air 11/30/17 15:27 96 Room Air 11/30/17 14:54 36.7 133 19 129/82 96 Room Air Lab Results: Results Past 24 Hours Test 11/30/17 15:20 12/01/17 06:13 Range/Units White Blood Count 10.92 7.78 4.8-10.8 K/uL Red Blood Count 4.47 3.95 4.2-5.4 M/uL Hemoglobin 15.0 13.0 12.0-16.0 g/dL Hematocrit 43.1 38.0 37-47 % Mean Corpuscular Volume 96.4 96.2 80-100 fL Mean Corpuscular Hemoglobin 33.6 32.9 25-34 pg Mean Corpuscular Hemoglobin Concent 34.8 34.2 32-36 g/dl Platelet Count 324 274 130-400 K/uL Mean Platelet Volume 9.5 9.3 7.4-10.4 fL Neutrophils (%) (Auto) 62.7 % Lymphocytes (%) (Auto) 21.6 % Monocytes (%) (Auto) 5.1 % Eosinophils (%) (Auto) 9.4 % Basophils (%) (Auto) 0.7 % Neutrophils # (Auto) 6.84 1.4-6.5 K/uL Lymphocytes # (Auto) 2.36 1.2-3.4 K/uL Monocytes # (Auto) 0.56 0.11-0.59 K/uL Eosinophils # (Auto) 1.03 0-0.5 K/uL Basophils # (Auto) 0.08 0-0.2 K/uL RDW Standard Deviation 43.3 44.0 36.4-46.3 fL RDW Coefficient of Variation 12.4 12.6 11.5-14.5 % Immature Granulocyte % (Auto) 0.5 % Immature Granulocyte # (Auto) 0.05 0.00-0.02 K/uL Prothrombin Time 9.8 9.0-12.0 SECONDS Prothromb Time International Ratio 0.9 0.9-1.1 Activated Partial Thromboplast Time 24.5 21.0-31.0 SECONDS Partial Thromboplastin Ratio 0.9 Sodium Level 139 139 136-145 mmol/L Potassium Level 3.7 4.0 3.5-5.1 mmol/L Chloride Level 106 109 98-107 mmol/L Carbon Dioxide Level 24 22 21-32 mmol/L Anion Gap 8.0 8.0 3-11 mmol/L Blood Urea Nitrogen 9 7 7-18 mg/dl Creatinine 0.97 0.81 0.60-1.20 mg/dl Est Creatinine Clear Calc Drug Dose 61.1 71.7 ml/min Estimated GFR () 75.1 93.4 Estimated GFR (Non- 64.8 80.6 BUN/Creatinine Ratio 9.1 9.2 10-20 Random Glucose 117 133 70-99 mg/dl Calcium Level 9.5 9.0 8.5-10.1 mg/dl Magnesium Level 2.2 1.8-2.4 mg/dl Total Bilirubin 0.5 0.2-1 mg/dl Aspartate Amino Transf (AST/SGOT) 21 15-37 U/L Alanine Aminotransferase (ALT/SGPT) 28 12-78 U/L Alkaline Phosphatase 74 45-117 U/L Troponin I < 0.015 0-0.045 ng/ml Total Protein 8.0 6.4-8.2 gm/dl Albumin 4.2 3.4-5.0 gm/dl Globulin 3.8 2.5-4.0 gm/dl Albumin/Globulin Ratio 1.1 0.9-2
[2017-12-01] MEDS ORDERED: NURSING VERBAL MED ORDER ONE (09:45)
[2017-12-01] MEDS ORDERED: CEFAZOLIN SOD 1000MG/7.5 ML IV PUSH IV ONE (09:56)
[2017-12-01] MEDS ORDERED: FAMOTIDINE 20 MG TAB PO SCH (10:00)
[2017-12-01] MEDS ORDERED: ACETAMINOPHEN 500 MG TAB PO SCH (10:00)
[2017-12-01] MEDS ORDERED: METOCLOPRAMIDE HCL 10 MG TAB PO SCH (10:00)
[2017-12-01] MEDS ORDERED: DEXAMETHASONE 4 MG TAB PO SCH (10:00)
[2017-12-01] MEDS: TRANEXAMIC ACID INJ 1,000 MG in SODIUM CHLORIDE 0.9% 100ML 100 ML IV SCH ×2 (10:17→16:06)
[2017-12-01] MEDS: ROPIVACAINE 5MG/ML 30 ML 150 MG, BUPIVACAINE 0.5% MPF INJ 30 ML, EpINEphrine HCL INJ 0.... INFIL SCH ×16 (11:23→11:43)
[2017-12-01] MEDS ORDERED: POVIDONE-IODINE OP SOLN 30 ML BTL TOP ONE (11:24)
[2017-12-01] MEDS ORDERED: BACITRACIN 50000 UNIT VIAL IR ONE (11:26)
--- NOTE | 2017-12-01 11:44 | [facility] Post Operative Brief Note ---
Immediate Operative Summary Operative Date Dec 01, 2017. Pre-Operative Diagnosis Degenerative Joint Disease, right hip Post-Operative Diagnosis Same Procedure(s) Performed Right total hip arthroplasty, uncemented Surgeon Dr. Karson Gonzalez Shirt Cleaner Surgeon(s) Zack Argueta PA-C Estimated Blood Loss 20 cc Findings Consistent with Post-Op Diagnosis Specimens Permanent: A. Right femoral head Drains yes Anesthesia Type MAC Spinal Regional Complication(s) none Disposition Accompanied Pt To Recover: no Disposition: Recovery Room / PACU
[2017-12-01] MEDS ORDERED: ZOLPIDEM TARTRATE 5 MG TAB PO PRN (11:45)
[2017-12-01] MEDS ORDERED: CEFAZOLIN IV 2 MG in DEXTROSE 5% 50ML 50 ML IV SCH (11:45)
[2017-12-01] MEDS ORDERED: ONDANSETRON INJ 2 MG/ML 2 ML VIAL IV PRN (11:45)
[2017-12-01] MEDS ORDERED: MAGNESIUM HYDROXIDE SUSP 30 ML UDC PO PRN (11:45)
[2017-12-01] MEDS ORDERED: ALUMINUM/MAGNESIUM/SIMETH (MAALOX MAX) 30 ML UDC PO PRN (11:45)
[2017-12-01] MEDS ORDERED: BISACODYL 10 MG SUPP PR PRN (11:45)
--- NOTE | 2017-12-01 11:51 | [facility] Operative Report ---
Operative Report Operative Date Dec 01, 2017. Pre-Operative Diagnosis Degenerative Joint Disease, right hip Post-Operative Diagnosis Degenerative Joint Disease, right hip Procedure(s) Performed Right Total Hip Arthroplasty Surgeon Dr. Karson Gonzalez Fuse Cutter Surgeon(s) Zack Argueta PA-C Estimated Blood Loss 30ML Findings As above Specimens Permanent: A. Right femoral head Drains yes Anesthesia Type MAC Spinal Regional Complication(s) none Disposition no Recovery Room / PACU Description of Procedure IMPLANTS USED: Fannin size 52 mm PSL WREN coated acetabular cup, one acetabular screw, a 36 mm X3 elevated liner, a #3 Accolade 2 stem with a 127 neck and a 36 mm +5 ceramic INDICATIONS: Mrs. Tovar is a pleasant female who has unfortunately failed all forms of conservative measures. Therefore, they have has decided to undergo elective surgical intervention. All risks and benefits of the surgery were discussed with the patient and the family in entirety. PROCEDURE: The patient was brought to the operating room and properly identified by myself, anesthesia, and staff. Patient was given a spinal anesthetic and placed on the operating table with the right hip up. The hip was then prepped and draped in the standard orthopedic fashion. We made a standard posterolateral approach over the greater trochanteric area. We then dissected down to subcutaneous tissue until the fascia was identified. We incised the fascia in line with the skin incision. We then split the gluteus kieran muscles with finger dissection. We then put the Charnley retractor in place. We placed the retractor underneath the gluteus medius to expose the piriformis. The piriformis was then tagged with a tag suture and released from the insertion from the greater trochanteric area with the use of electrocautery. We then performed a T capsulotomy and the femoral head and neck were atraumatically dislocated. We then performed femoral neck osteotomy at the pre-template site. We removed the femoral head and neck without difficulty. We then placed the retractor around the acetabulum. We then began to ream the acetabulum to the appropriate size. We then impacted the cup into place and had a very good fixation within the pelvis. We then put the liner in place as well. Then using multiple size approaches from the Accolade 2 system a size #3 fit very nicely in the proximal femur. I then put trial components in place. WE had very good range of motion, excellent stability, and a leg lengths were still slightly short on the right side compared to the left however given her anatomy of both the hips it is basically impossible to make equal on the right side until we do her left hip replacement.. We removed the trial components and irrigated the wound. We then impacted the components in place and irrigated the wound once more. We then closed the capsule and fascia with a 0 Vicryl suture, the deep dermis with 2-0 Vicryl suture, and finally the skin with a running 3-0 Vicryl subcuticular stitch. A sterile dressing was applied. The patient was taken to the recovery room in stable condition. Due to the complex nature of the procedure, the entire surgery was performed with the operational assistance of the ZULEYMA. The accounting manager assistant controller was under direct supervision, was involved in the actual performance of all aspects of the surgical procedure including hemostasis, tissue retraction and incision, instrument management, patient positioning, and wound closure. I attest to the content of the Intraoperative Record and any orders documented therein. Any exceptions are noted below.
--- NOTE | 2017-12-01 12:21 | Anesthesiology Progress Note ---
Anesthesia Post Op Note Date & Time Dec 01, 2017 at 12:20 Vital Signs Pain Intensity: 6.0 Vital Signs Past 12 Hours Date Time Temp Pulse Resp B/P (MAP) Pulse Ox O2 Delivery O2 Flow Rate FiO2 12/01/17 12:10 128/72 12/01/17 12:10 128/72 12/01/17 12:09 94 22 12/01/17 12:09 94 22 12/01/17 12:09 95 22 123/73 100 12/01/17 12:09 95 22 123/73 100 12/01/17 08:02 36.7 101 20 151/84 (106) 98 Room Air 12/01/17 08:00 Room Air 12/01/17 07:04 102 16 97 Room Air 12/01/17 05:13 88 16 95 Room Air 12/01/17 04:00 Room Air 12/01/17 03:12 36.8 99 19 116/76 (89) 97 Room Air Notes Mental Status: alert / awake / arousable, participated in evaluation Pt Amnestic to Procedure: Yes Nausea / Vomiting: adequately controlled Pain: adequately controlled Airway Patency, RR, SpO2: stable & adequate BP & HR: stable & adequate Hydration State: stable & adequate Neuraxial Anesthesia: was administered, sensory block is resolving Anesthetic Complications: no major complications apparent
[2017-12-01] MEDS: SODIUM CHLORIDE 0.9% 1000ML 1,000 ML IV SCH ×2 (13:31→22:10)
[2017-12-01] MEDS: ACETAMINOPHEN 500 MG TAB PO SCH ×2 (13:57→22:10)
[2017-12-01] MEDS: OXYCODONE HCL IR 5 MG TAB (IMMEDIATE RELEASE) PO PRN ×2 (16:04→20:04)
[2017-12-01] MEDS ORDERED: TRANEXAMIC ACID INJ 1,000 MG in SODIUM CHLORIDE 0.9% 100ML 100 ML IV ONE (17:00)
[2017-12-01] MEDS: CEFAZOLIN IV 2,000 MG in SYRINGE 0 ML IV SCH (17:36)
[2017-12-01] MEDS: ASPIRIN 81 MG ECTAB PO SCH (21:09)
[2017-12-01] MEDS: DOCUSATE SODIUM 100 MG CAP PO SCH (21:09)
[2017-12-01] MEDS: GABAPENTIN 300 MG CAP PO SCH (21:10)
[2017-12-02] MEDS: LEVALBUTEROL 1.25MG/0.5ML NEB INH SCH ×2 (02:02→05:55)
[2017-12-02] MEDS: CEFAZOLIN IV 2,000 MG in SYRINGE 0 ML IV SCH (02:17)
[2017-12-02] MEDS: OXYCODONE HCL IR 5 MG TAB (IMMEDIATE RELEASE) PO PRN ×2 (02:20→10:30)
[2017-12-02 03:10] VITALS: BP 124/72; PULSE 91; TEMP 36.4; O2SAT 98
[2017-12-02 05:56] VITALS: PULSE 100; O2SAT 98
[2017-12-02] MEDS: METHYLPREDNISOLONE IV 20 MG in SYRINGE 0 ML IV SCH (06:18)
[2017-12-02] MEDS: ACETAMINOPHEN 500 MG TAB PO SCH (06:18)
[2017-12-02] MEDS ORDERED: DEXAMETHASONE INJ 10 MG in SYRINGE 0 ML IV ONE (07:30)
--- NOTE | 2017-12-02 07:42 | Orthopedic Progress Note ---
Orthopedic Progress Note Date of Service Dec 02, 2017. Subjective Post OP Day: 1 Reports: feeling well, Denies: chest pain, SOB, nausea / vomiting, light headedness, calf pain Objective calves soft nontender, N/V intact, hip located, dressing C/D/I, A&O x3, toes mobile, hemovac drainage (0/5cc per shift) Date Time Temp Pulse Resp B/P (MAP) Pulse Ox O2 Delivery O2 Flow Rate FiO2 12/02/17 05:56 100 16 98 Room Air 12/02/17 03:10 36.4 91 16 124/72 (89) 98 Room Air 12/01/17 23:31 Room Air 12/01/17 23:15 36.7 95 16 121/74 (90) 100 Room Air 12/01/17 19:55 97 16 98 Room Air 12/01/17 19:10 36.9 101 18 116/65 (82) 99 Room Air 12/01/17 16:00 36.6 107 16 103/68 (80) 97 Room Air 12/01/17 16:00 Room Air 12/01/17 15:48 36.5 110 18 98 12/01/17 15:00 110 18 102/53 (69) 98 Room Air 12/01/17 14:24 101 16 96 Room Air 12/01/17 14:00 113 17 124/57 (79) 98 Room Air 12/01/17 13:30 117 18 121/44 (69) 100 Room Air 12/01/17 13:00 Room Air 12/01/17 13:00 36.5 103 16 128/63 (84) 94 Room Air 12/01/17 12:51 133/76 12/01/17 12:48 92 19 100 12/01/17 12:48 91 19 12/01/17 12:45 130/82 12/01/17 12:43 99 19 12/01/17 12:43 100 19 100 12/01/17 12:40 122/83 12/01/17 12:38 95 14 100 12/01/17 12:38 96 14 12/01/17 12:35 136/93 12/01/17 12:33 89 16 100 12/01/17 12:33 90 16 12/01/17 12:32 37.1 92 20 136/93 (110) 100 Oxymask 2 100 12/01/17 12:30 134/74 12/01/17 12:28 105 23 12/01/17 12:28 105 23 100 12/01/17 12:27 92 16 100 12/01/17 12:27 93 16 12/01/17 12:26 91 21 100 12/01/17 12:26 91 21 12/01/17 12:25 130/69 12/01/17 12:21 93 13 12/01/17 12:21 93 13 100 12/01/17 12:20 117/90 12/01/17 12:16 105 15 100 12/01/17 12:16 100 15 12/01/17 12:15 108/81 12/01/17 12:11 99 19 12/01/17 12:11 98 19 100 12/01/17 12:10 128/72 12/01/17 12:10 128/72 12/01/17 12:09 36.6 102 16 123/73 (83) 100 Oxymask 10 12/01/17 12:09 94 22 12/01/17 12:09 94 22 12/01/17 12:09 95 22 123/73 100 12/01/17 12:09 95 22 123/73 100 12/01/17 08:02 36.7 101 20 151/84 (106) 98 Room Air 12/01/17 08:00 Room Air Assessment & Plan Assessment: POD#1 sp right CHIDI Plan: PT/OT DVT PROPH- ASA 81MG BID PAIN MANAGEMENT- NAVEEN, TYLENOL DC PLANNING- DC HOME TODAY IF OK WITH MEDICINE. ORTHOPEDICALLY STABLE BUT ON MEDICAL SERVICE DUE TO PRE-OP ASTHMA EXACERBATION. -ADVANTAGE HH. OK TO DC DRESSING/DRAIN.
[2017-12-02] MEDS ORDERED: ACET-24 PO (07:46)
[2017-12-02] MEDS ORDERED: TRAM-10 PO (07:46)
[2017-12-02] MEDS ORDERED: ASPEC81 PO (07:46)
[2017-12-02] MEDS ORDERED: ONDA8TAB6 PO (07:46)
[2017-12-02] MEDS ORDERED: CEFA500C2 PO (07:46)
[2017-12-02] MEDS: SODIUM CHLORIDE 0.9% 1000ML 1,000 ML IV SCH (07:48)
--- NOTE | 2017-12-02 07:49 | Discharge Instructions ---
Discharge Instructions Date of Service Dec 02, 2017. Admission Reason for Admission: Asthma Exacerbation Discharge Discharge Diagnosis / Problem: sp right CHIDI Discharge Goals Goal(s): Decrease discomfort, Improve function, Increase independence Activity Recommendations Activity Limitations: per Instructions/Follow-up section . Instructions / Follow-Up Instructions / Follow-Up ACTIVITY RECOMMENDATIONS: SELF CARE INSTRUCTIONS AFTER TOTAL HIP REPLACEMENT Until the incision and soft tissues around your hip have healed, there is a possibility that the hip prosthesis could dislocate. A. Observe the following precautions to prevent dislocation: 1. Don't bend your hip greater than 90 degrees. 2. Avoid crossing your legs or ankles while standing or lying. 3. Sit with your feet placed 6 inches apart. 4. When sitting, keep your knees below your hips. Sit on a firm surface, avoid deep, soft chairs and couches. Use an elevated toilet seat in the bathroom. 5. Don't bend over at the waist. Use a long handled shoehorn and a sock aid to help you put on your shoes and socks. A research home economist can help you picking machine operator objects that are too high or too low to reach. 6. Keep car riding to a minimum for at least one month after surgery. B. Your balance may be shaky for a while. Use crutches or a walker until directed by your doctor. C. Use hand rails when walking on stairs. D. Wear low heeled shoes with non-slip soles. E. Be sure that your floors are free of things that could trip you - throw rugs , electrical cords, small objects. Avoid wet and waxed floors, especially with crutches and canes. F. Try to walk several times a day with rest periods between. G. Continue with all the exercises taught to you in the hospital. Again, make walking a part of your daily routine. SPECIAL CARE INSTRUCTIONS: VERY IMPORTANT TO READ AND REVIEW A. You may still be at risk for phlebitis and blood clots. 2. Take Aspirin 81mg twice daily for 4 weeks or as directed by your doctor. This is your blood thinner. 3. High risk patients may be prescribed a stronger blood thinner if necessary. 4. If you are on Coumadin normally, your family doctor/dye automation operator should monitor your blood work. Expect a phone call the day of or the day after bloodwork is drawn to adjust your dosage. B. You must take antibiotics before having dental work, bladder, bowel and other surgery. Your doctor will provide you with a permanent card to carry describing precautions. C. Call [facility] if you have a fever, redness or swelling around the incision, cloudy drainage from incision, or sudden increase in pain in your hip, not relieved by your regular pain medication. D. Please call the office at if you have any concerns or questions about your operation or recovery. * YOU MAY SHOWER, NO TUB BATHS UNTIL CLEARED BY YOUR DOCTOR. * WEAR KRYS HOSE 20 HOURS PER DAY FOR 2 WEEKS. * YOU SHOULD USE A WALKER OR CRUTCHES FOR 2-4 WEEKS. THIS WILL HELP PREVENT STRAIN ON YOUR HIP MUSCLE AND ALLOW IT TO HEAL PROPERLY. YOU MAY WEAN TO A CANE TOLERATED. * MOST PATIENTS WILL HAVE HOME NURSING FOR THERAPY. IF YOU DECIDE TO DO OUTPATIENT PHYSICAL THERAPY, PLEASE SCHEDULE THIS 3 TIMES PER WEEK. * YOU HAVE A ZIPLINE CLOSURE. THIS IS IN PLACE OF [place]. IT WILL BE REMOVED AT YOUR 2 WEEK POST OP. KEEP CLEAN AND DRY. RECOMMEND KEEPING COVERED WITH A LIGHT DRESSING TO PREVEN SNAGGING. YOU MAY SHOWER 24 HOURS AFTER DRAIN REMOVAL. FOLLOW UP VISIT: If appointment is not already scheduled: Please call [facility] to make a follow-up appointment for 2 weeks after your surgery at . Current Hospital Diet Patient's current hospital diet: AHA Diet (Heart Healthy) Discharge Diet Recommended Diet: Regular Diet Procedures Procedures Performed: Right Total Hip Arthroplasty Pending Studies Studies pending at discharge: no Medical Emergencies . Who to Call and When: Medical Emergencies: If at any time you feel your situation is an emergency, please call 911 immediately. . Non-Emergent Contact Non-Emergency issues call your: Surgeon . "Provider Documentation" section prepared by Gracia Ward. . [place] Drug Monitoring Program Search Results: patient reviewed within database, no issues identified
[2017-12-02 07:50] VITALS: BP 129/73; PULSE 98; TEMP 36.8; O2SAT 99
--- NOTE | 2017-12-02 07:56 | Anesthesiology Progress Note ---
Anesthesia Post Op Note Date & Time Dec 02, 2017 at 07:55 Vital Signs Pain Intensity: 7.0 Vital Signs Past 12 Hours Date Time Temp Pulse Resp B/P (MAP) Pulse Ox O2 Delivery O2 Flow Rate FiO2 12/02/17 05:56 100 16 98 Room Air 12/02/17 03:10 36.4 91 16 124/72 (89) 98 Room Air 12/01/17 23:31 Room Air 12/01/17 23:15 36.7 95 16 121/74 (90) 100 Room Air Notes Mental Status: alert / awake / arousable, participated in evaluation Pt Amnestic to Procedure: Yes Nausea / Vomiting: adequately controlled Pain: adequately controlled Airway Patency, RR, SpO2: stable & adequate BP & HR: stable & adequate Hydration State: stable & adequate Neuraxial Anesthesia: was administered, sensory block resolved Anesthetic Complications: no major complications apparent
[2017-12-02] MEDS: DOCUSATE SODIUM 100 MG CAP PO SCH (08:48)
[2017-12-02] MEDS: ASPIRIN 81 MG ECTAB PO SCH (08:48)
[2017-12-02] MEDS ORDERED: PRD10 PO (11:02)
[2017-12-02 12:10] VITALS: BP 129/73; PULSE 98; TEMP 36.8; O2SAT 99
--- NOTE | 2017-12-02 17:35 | Progress Note ---
Internal Med Progress Note Date of Service: Dec 02, 2017. Provider Documentation: SUBJECTIVE: The patient was seen and examined Admitted with Cough and Wheezing Has Avascular necrosis of the right Hip and going for surgery today Denies any symptoms this morning Was seen today before discharge Denies any complaints OBJECTIVE: Vital Signs-as noted below Exam: General-No distress at rest Eyes-Normal ENT-normal Neck-supple Lungs-Clear to ausucltate bilaterally Heart-Regular,no murmur appreciated Abdomen-Benign,no masses Extremities-No edema Neuro-AAOx3 No focal neuro deficit Lab data as noted below. ASSESSMENT & PLAN: ASTHMA EXACERBATION - patient presenting with cough, wheeze, and shortness of breath x 3 days - saturating well on room air in the ED, CXR clear - check flu swab-negative - has been on low dose steroid - Nebs -no medical contraindication for proposed surgery -No wheezing and or SOB -discharge home on Tapering dose of Prednisone RIGHT HIP OSTEOARTHRITIS -with avascular necrosis - scheduled for CHIDI this AM -no contraindication for proposed surgery-under spinal -ortho cleared for discharge DVT PROPHYLAXIS - SCDs in light of possible surgery tomorrow DISPO - Observation status for now; further dispo pending on patient's hip surgery Vital Signs: Date Time Temp Pulse Resp B/P (MAP) Pulse Ox O2 Delivery O2 Flow Rate FiO2 12/02/17 12:10 36.8 98 16 99 Room Air 12/02/17 07:50 36.8 98 16 129/73 (91) 99 Room Air 12/02/17 05:56 100 16 98 Room Air 12/02/17 03:10 36.4 91 16 124/72 (89) 98 Room Air 12/01/17 23:31 Room Air 12/01/17 23:15 36.7 95 16 121/74 (90) 100 Room Air 12/01/17 19:55 97 16 98 Room Air 12/01/17 19:10 36.9 101 18 116/65 (82) 99 Room Air
--- NOTE | 2017-12-03 08:06 | Discharge Summary ---
Discharge Summary Date of Service Dec 03, 2017. Discharge Summary Admission Date: Dec 01, 2017 at 11:07 Discharge Date: Dec 02, 2017 Discharge Disposition: Home with services Principal Diagnosis: Asthma Exacerbation,S/P Right CHIDI Secondary Diagnoses/Problems: Please see H&P and Hospital Progress note Consultations: Ortho Medication Reconciliation New Medications: Cefadroxil (Duricef) 500 Mg Cap 500 MG PO BID, #28 CAP Ondansetron Hcl (Zofran) 8 Mg Tab 8 MG PO Q8 PRN for Nausea, #20 TAB Acetaminophen (Sb Non-Aspirin Extra Stre) 500 Mg Tab 1000 MG PO Q8 for 30 Days, #180 TAB Aspirin (Aspirin EC Low Dose) 81 Mg Ectab 81 MG PO BID for 30 Days, #60 TAB Prednisone (Prednisone) 10 Mg Tab 10 MG PO UD for 9 Days, #18 TAB Changed Medications: Tramadol (Ultram) 50 Mg Tab 1-2 TAB PO Q4H, #60 TAB (Changed from: 1 TAB; QAM; 30; Removed Days) Continued Medications: Albuterol (Ventolin Hfa) 60 Puffs/5400 Mcg Aers 2 PUFF INH Q4HRS PRN for SOB/Wheezing Biotin (Biotin) 1 Mg Cap 1 CAP PO ON HOLD ON HOLD UNTIL AFTER SURGERY Calcium Carbonate-Vitamin D (Calcium + D) 1 Tab Tab 1 TAB PO ON HOLD ON HOLD UNTIL AFTER SURGERY Diphenhydramine Hcl (Benadryl Allergy) 25 Mg Cap 1 CAP PO Q4H PRN for Allergic Reaction for 30 Days, #30 CAP Gabapentin (Neurontin) 300 Mg Cap 2 CAP PO HS, CAP Norethindrone Acetate-Ethinyl (Jinteli) 1 Tab Tab 1 TAB PO QPM Discontinued Medications: Ibuprofen-Diphenhydramine Citr (Ibuprofen Pm) 1 Tab Tab 2 TAB PO ON HOLD Admission Information HPI (per Admitting provider): 57 year old female who presents to the ED with cough, shortness of breath, and wheezing. Patient has history of asthma which she reports is typically well controlled. Has not had an exacerbation in about one year. She reports about two days ago she developed cough, wheezing, and shortness of breath. She has has been using her albuterol inhaler without much relief. She reports cough has been non productive. No fevers or chills. She denies chest pain. She currently reports some palpitations from the nebulizer treatment. No abdominal pain, nausea, vomiting, or diarrhea. She denies urinary symptoms. In the ED, patient is saturating well on room air. She improved greatly with hour long nebulizer treatment. Of note, patient is scheduled for elective right CHIDI tomorrow. Anesthesia evaluated the patient who advised overnight observation. Past Medical/Surgical History Medical Problems: (1) Intermittent asthma Status: Chronic Surgical Problems: (1) History of cataract surgery Status: Chronic (2) History of cervical spinal surgery Status: Chronic (3) History of lumbar fusion Status: Chronic (4) Hx of tonsillectomy Status: Chronic Family History FH: breast cancer FH: diabetes mellitus FH: heart disease Social History Smoking Status: Never Smoker Alcohol Use: socially Immunizations History of Influenza Vaccine: Yes Influenza Vaccine Date: Jun 04, 2017 History of Tetanus Vaccine?: Yes Tetanus Immunization Date: Jul 24, 2013 Allergies Coded Allergies: Sulfa Drugs (Verified Allergy, Unknown, HIVES, 11/16/17) Uncoded Allergies: CRABS (Allergy, Unknown, SWELLING, 10/01/15) Home Medications Scheduled Biotin (Biotin), 1 CAP PO ON HOLD Calcium Carbonate-Vitamin D (Calcium + D), 1 TAB PO ON HOLD Gabapentin (Neurontin), 2 CAP PO HS Ibuprofen-Diphenhydramine Citr (Ibuprofen Pm), 2 TAB PO ON HOLD Norethindrone Acetate-Ethinyl (Jinteli), 1 TAB PO QPM Tramadol (Ultram), 1 TAB PO QAM Scheduled PRN Albuterol (Ventolin Hfa), 2 PUFF INH Q4HRS PRN for SOB/Wheezing Diphenhydramine Hcl (Benadryl Allergy), 1 CAP PO Q4H PRN for Allergic Reaction Review of Systems ROS per HPI, all other systems reviewed and negative Physical Exam H&P v2 Physical Exam Vital Signs Date Time Temp Pulse Resp B/P (MAP) Pulse Ox O2 Delivery O2 Flow Rate FiO2 11/30/17 18:38 36.7 122 24 141/84 97 11/30/17 18:30 120/83 11/30/17 18:15 126 19 99 Room Air 11/30/17 18:10 122 24 97 Room Air 11/30/17 17:40 128 15 99 Room Air 11/30/17 17:35 124 17 100 Room Air 11/30/17 17:31 141/84 11/30/17 17:05 114 19 100 Room Air 11/30/17 17:00 135/81 11/30/17 16:49 102 18 99 Room Air 11/30/17 16:42 121 11/30/17 16:37 112 16 107/81 98 Room Air 11/30/17 16:37 107/81 11/30/17 16:29 108 16 98 Room Air 11/30/17 15:27 96 Room Air 11/30/17 14:54 36.7 133 19 129/82 96 Room Air General Appearance: WD/WN, no apparent distress Head: normocephalic, atraumatic Eyes: normal inspection, EOMI, sclerae normal ENT: hearing grossly normal, + pertinent finding (mucous membranes moist) Neck: supple, no JVD, trachea midline Respiratory/Chest: lungs clear, normal breath sounds, no respiratory distress, + pertinent finding Cardiovascular: no edema, normal peripheral pulses, + tachycardia (regular rhythm) Abdomen/GI: normal bowel sounds, non tender, soft, no organomegaly Extremities/Musculoskelatal: normal inspection, no calf tenderness, normal capillary refill Neurologic/Psych: no motor/sensory deficits, alert, normal mood/affect, oriented x 3 Skin: normal color, warm/dry Diagnostics H&P v2 Diagnostics Laboratory Results Results Past 24 Hours Test 11/30/17 15:20 Range/Units White Blood Count 10.92 4.8-10.8 K/uL Red Blood Count 4.47 4.2-5.4 M/uL Hemoglobin 15.0 12.0-16.0 g/dL Hematocrit 43.1 37-47 % Mean Corpuscular Volume 96.4 80-100 fL Mean Corpuscular Hemoglobin 33.6 25-34 pg Mean Corpuscular Hemoglobin Concent 34.8 32-36 g/dl Platelet Count 324 130-400 K/uL Mean Platelet Volume 9.5 7.4-10.4 fL Neutrophils (%) (Auto) 62.7 % Lymphocytes (%) (Auto) 21.6 % Monocytes (%) (Auto) 5.1 % Eosinophils (%) (Auto) 9.4 % Basophils (%) (Auto) 0.7 % Neutrophils # (Auto) 6.84 1.4-6.5 K/uL Lymphocytes # (Auto) 2.36 1.2-3.4 K/uL Monocytes # (Auto) 0.56 0.11-0.59 K/uL Eosinophils # (Auto) 1.03 0-0.5 K/uL Basophils # (Auto) 0.08 0-0.2 K/uL RDW Standard Deviation 43.3 36.4-46.3 fL RDW Coefficient of Variation 12.4 11.5-14.5 % Immature Granulocyte % (Auto) 0.5 % Immature Granulocyte # (Auto) 0.05 0.00-0.02 K/uL Prothrombin Time 9.8 9.0-12.0 SECONDS Prothromb Time International Ratio 0.9 0.9-1.1 Activated Partial Thromboplast Time 24.5 21.0-31.0 SECONDS Partial Thromboplastin Ratio 0.9 Sodium Level 139 136-145 mmol/L Potassium Level 3.7 3.5-5.1 mmol/L Chloride Level 106 98-107 mmol/L Carbon Dioxide Level 24 21-32 mmol/L Anion Gap 8.0 3-11 mmol/L Blood Urea Nitrogen 9 7-18 mg/dl Creatinine 0.97 0.60-1.20 mg/dl Est Creatinine Clear Calc Drug Dose 61.1 ml/min Estimated GFR () 75.1 Estimated GFR (Non- 64.8 BUN/Creatinine Ratio 9.1 10-20 Random Glucose 117 70-99 mg/dl Calcium Level 9.5 8.5-10.1 mg/dl Magnesium Level 2.2 1.8-2.4 mg/dl Total Bilirubin 0.5 0.2-1 mg/dl Aspartate Amino Transf (AST/SGOT) 21 15-37 U/L Alanine Aminotransferase (ALT/SGPT) 28 12-78 U/L Alkaline Phosphatase 74 45-117 U/L Troponin I < 0.015 0-0.045 ng/ml Total Protein 8.0 6.4-8.2 gm/dl Albumin 4.2 3.4-5.0 gm/dl Globulin 3.8 2.5-4.0 gm/dl Albumin/Globulin Ratio 1.1 0.9-2 Diagnostic Radiology CXR IMPRESSION: Negative chest. Impression H&P v2 Impression Assessment and Plan ASTHMA EXACERBATION - admit to tele - patient presenting with cough, wheeze, and shortness of breath x 3 days - saturating well on room air in the ED, CXR clear - patient did not have any wheezing at the time of my exam however did re- develop wheezing at the time of Dr. Alvarez' exam - check flu swab - will start low dose steroids - around the clock nebs - anesthesia evaluated patient in the ED in light of planned hip surgery tomorrow - will re-evaluate patient in the ED RIGHT HIP OSTEOARTHRITIS - scheduled for CHIDI tomorrow DVT PROPHYLAXIS - SCDs in light of possible surgery tomorrow DISPO - Observation status for now; further dispo pending on patient's hip surgery Resuscitation Status VTE Prophylaxis Will order VTE Prophylaxis: Yes Note ATTENDING ADDENDUM Record reviewed. Patient interviewed and examined. Care coordinated with AZALIA Rendon. Please refer to her documentation for patient's history. Briefly, 57-year-old female with asthma. Presented to ED with 2 days of nonproductive cough, wheezing, dyspnea. EXAM: General- coughing; no acute distress Lungs- diffuse moderate wheezing, especially with forced expiration Cardiovascular- RRR, tachy Abdomen- + bowel sounds, soft, nontender Extremities- no cyanosis; no calf tenderness Neuro- alert, oriented Skin- warm & dry . DATA: Lab studies as noted. Chest x-ray negative. PROCUREMENT AGENT swab for influenza A/B negative. ASSESSMENT AND PLAN: Exacerbation of asthma, most likely secondary to viral respiratory tract infection. No evidence of pneumonia on chest x-ray Influenza PCR negative. Treat with IV methylprednisolone and nebulizer treatments. No indication for antibiotics or antiviral medications at this time Patient is scheduled for total hip arthroplasty tomorrow. Disposition for surgery will depend on her status in the morning. Please refer to YAHIR Jarquin's documentation for discussion of other issues. Dyllan Alvarez MD . Physical Exam (per Admitting): General Appearance: WD/WN, no apparent distress Head: normocephalic, atraumatic Eyes: normal inspection, EOMI, sclerae normal ENT: hearing grossly normal, + pertinent finding (mucous membranes moist) Neck: supple, no JVD, trachea midline Respiratory/Chest: lungs clear, normal breath sounds, no respiratory distress, + pertinent finding Cardiovascular: no edema, normal peripheral pulses, + tachycardia (regular rhythm) Abdomen/GI: normal bowel sounds, non tender, soft, no organomegaly Extremities/Musculoskelatal: normal inspection, no calf tenderness, normal capillary refill Neurologic/Psych: no motor/sensory deficits, alert, normal mood/affect, oriented x 3 Skin: normal color, warm/dry Hospital Course ASTHMA EXACERBATION - patient presenting with cough, wheeze, and shortness of breath x 3 days - saturating well on room air in the ED, CXR clear - check flu swab-negative - has been on low dose steroid - Nebs -no medical contraindication for proposed surgery -No wheezing and or SOB -discharge home on Tapering dose of Prednisone RIGHT HIP OSTEOARTHRITIS -with avascular necrosis - scheduled for CHIDI this AM -no contraindication for proposed surgery-under spinal -ortho cleared for discharge DVT PROPHYLAXIS - SCDs in light of possible surgery tomorrow DISPO - Observation status for now; further dispo pending on patient's hip surgery Total time spent on discharge = This includes examination of the patient, discharge planning, medication reconciliation, and communication with other providers. Discharge Instructions Date of Service Dec 02, 2017. Admission Reason for Admission: Asthma Exacerbation Discharge Discharge Diagnosis / Problem: sp right CHIDI Discharge Goals Goal(s): Decrease discomfort, Improve function, Increase independence Activity Recommendations Activity Limitations: per Instructions/Follow-up section . Instructions / Follow-Up Instructions / Follow-Up ACTIVITY RECOMMENDATIONS: SELF CARE INSTRUCTIONS AFTER TOTAL HIP REPLACEMENT Until the incision and soft tissues around your hip have healed, there is a possibility that the hip prosthesis could dislocate. A. Observe the following precautions to prevent dislocation: 1. Don't bend your hip greater than 90 degrees. 2. Avoid crossing your legs or ankles while standing or lying. 3. Sit with your feet placed 6 inches apart. 4. When sitting, keep your knees below your hips. Sit on a firm surface, avoid deep, soft chairs and couches. Use an elevated toilet seat in the bathroom. 5. Don't bend over at the waist. Use a long handled shoehorn and a sock aid to help you put on your shoes and socks. A digital sales manager can help you cotton picker operator objects that are too high or too low to reach. 6. Keep car riding to a minimum for at least one month after surgery. B. Your balance may be shaky for a while. Use crutches or a walker until directed by your doctor. C. Use hand rails when walking on stairs. D. Wear low heeled shoes with non-slip soles. E. Be sure that your floors are free of things that could trip you - throw rugs , electrical cords, small objects. Avoid wet and waxed floors, especially with crutches and canes. F. Try to walk several times a day with rest periods between. G. Continue with all the exercises taught to you in the hospital. Again, make walking a part of your daily routine. SPECIAL CARE INSTRUCTIONS: VERY IMPORTANT TO READ AND REVIEW A. You may still be at risk for phlebitis and blood clots. 2. Take Aspirin 81mg twice daily for 4 weeks or as directed by your doctor. This is your blood thinner. 3. High risk patients may be prescribed a stronger blood thinner if necessary. 4. If you are on Coumadin normally, your family doctor/web retailer should monitor your blood work. Expect a phone call the day of or the day after bloodwork is drawn to adjust your dosage. B. You must take antibiotics before having dental work, bladder, bowel and other surgery. Your doctor will provide you with a permanent card to carry describing precautions. C. Call [facility] if you have a fever, redness or swelling around the incision, cloudy drainage from incision, or sudden increase in pain in your hip, not relieved by your regular pain medication. D. Please call the office at if you have any concerns or questions about your operation or recovery. * YOU MAY SHOWER, NO TUB BATHS UNTIL CLEARED BY YOUR DOCTOR. * WEAR KRYS HOSE 20 HOURS PER DAY FOR 2 WEEKS. * YOU SHOULD USE A WALKER OR CRUTCHES FOR 2-4 WEEKS. THIS WILL HELP PREVENT STRAIN ON YOUR HIP MUSCLE AND ALLOW IT TO HEAL PROPERLY. YOU MAY WEAN TO A CANE TOLERATED. * MOST PATIENTS WILL HAVE HOME NURSING FOR THERAPY. IF YOU DECIDE TO DO OUTPATIENT PHYSICAL THERAPY, PLEASE SCHEDULE THIS 3 TIMES PER WEEK. * YOU HAVE A ZIPLINE CLOSURE. THIS IS IN PLACE OF [place]. IT WILL BE REMOVED AT YOUR 2 WEEK POST OP. KEEP CLEAN AND DRY. RECOMMEND KEEPING COVERED WITH A LIGHT DRESSING TO PREVEN SNAGGING. YOU MAY SHOWER 24 HOURS AFTER DRAIN REMOVAL. FOLLOW UP VISIT: If appointment is not already scheduled: Please call [facility] to make a follow-up appointment for 2 weeks after your surgery at . Current Hospital Diet Patient's current hospital diet: AHA Diet (Heart Healthy) Discharge Diet Recommended Diet: Regular Diet Procedures Procedures Performed: Right Total Hip Arthroplasty Pending Studies Studies pending at discharge: no Medical Emergencies . Who to Call and When: Medical Emergencies: If at any time you feel your situation is an emergency, please call 911 immediately. . Non-Emergent Contact Non-Emergency issues call your: Surgeon . "Provider Documentation" section prepared by Gracia Ward. . [place] Drug Monitoring Program Search Results: patient reviewed within database, no issues identified <Electronically signed by Gracia Ward P.A.> Additional Copies To Otis Downing M.D.
== END 2017-12-02 14:00 | disposition home health service (06) | DRG 470 ==
LOC: C.EDB 14:50 → C.2T 18:05 → ENRESERV 18:17 → CANRESERV 18:27 → OBSVTOIN 12-01 11:07 → CANBEDREQ 12-01 13:50 → ENRESERV 12-01 14:05 → C.3E 12-01 15:57
PROVIDERS: ADMIT Hospitalist; ATTEND Internal Medicine
PROC: 0SR903A Replacement of Right Hip Joint with Ceramic Synthetic Substitute, Uncemented, Open Approach (ICD-10-PCS; principal; 2017-12-01 10:30)
DX: M16.11 Unilateral primary osteoarthritis, right hip (principal); M87.051 Idiopathic aseptic necrosis of right femur; J45.901 Unspecified asthma with (acute) exacerbation; J06.9 Acute upper respiratory infection, unspecified; Z79.899 Other long term (current) drug therapy; Z88.2 Allergy status to sulfonamides

== ENCOUNTER → 2018-05-03 | Outpatient (CLI) | payer OTHER ==
[~2018-05-03] MED LIST changes: +ACET-24 PO; +ASPI-320 PO; +CEFA500C2 PO; +DIPH25CA65 PO; -IBUP1TAB55 PO; +ONDA-170 PO; +PRD10 PO
== END | disposition home or self-care (01) ==
LOC: C.LAB1850 07:36
PROVIDERS: ATTEND Student in an Organized Health Care Education/Training Program
DX: Z13.220 Encounter for screening for lipoid disorders (principal); Z13.1 Encounter for screening for diabetes mellitus

== ENCOUNTER 2019-01-16 07:29 | Inpatient (IN) ==
--- NOTE | 2019-01-05 13:29 | PAT Medication Instructions ---
Medication Instructions Date of Service January 05, 2019 Take morning of surgery With a small sip of water, OTHERWISE NOTHING TO EAT OR DRINK AFTER MIDNIGHT: Insulin Dependent Diabetic Patients * Test your blood sugar the morning of surgery * If Blood Sugar is GREATER THAN 150, take HALF of your regular dose of: * If Blood Sugar is LESS THAN 150, DO NOT TAKE ANY: Other Notes If you have any questions please call us at [phone] or [phone] or [phone] or [phone]
--- NOTE | 2019-01-05 13:32 | PAT Medication Instructions ---
Medication Instructions Date of Service January 05, 2019 Home Medications albuterol sulfate 2 puff INHALATION QID PRN ibuprofen 400 mg PO QID PRN tramadol 50 - 100 mg PO Q6H PRN ASK your surgeon for instructions ibuprofen 400 mg PO QID PRN Take morning of surgery With a small sip of water, OTHERWISE NOTHING TO EAT OR DRINK AFTER MIDNIGHT: albuterol sulfate 2 puff INHALATION QID PRN (use if needed; please bring with you to hospital day of surgery if possible) tramadol 50 - 100 mg PO Q6H PRN (okay to take up to 4 hours prior to surgery if needed) Take evening before surgery albuterol sulfate 2 puff INHALATION QID PRN (if needed) tramadol 50 - 100 mg PO Q6H PRN (if needed) Other Notes If you have any questions please call us at [phone] or [phone] or [phone] or [phone]
--- NOTE | 2019-01-05 15:03 | Anesthesiology Consultation ---
Date of Service January 05, 2019 Assessment & Plan (1) Encounter for pre-operative examination: - PCP: 01/04/19: "Patient is at low risk for perioperative cardiac event and may undergo the proposed surgery under noninvasive caridiac monitoring." Chart Review Chart Review: Acceptable Risk for Surgery and Patient seen in Pre Admission Testing Teaching & Discussion Pre-Anesthesia Teaching/Discussion Notes: Instructed NPO after midnight before surgery,except medications with 15 cc of water. Medication instructions provided according to the PAT guidelines. History Surgery Operation Date: 01/16/19 12:30 Proposed Procedures p Left Total Hip Arthroplasty - Osminaustin Gonzalez Height/Weight Height: 5 ft 6.5 in Weight: 72 kg Allergies Allergy/AdvReac Type Severity Reaction Status Date / Time crab Allergy Unknown SWELLING Verified 01/02/19 14:16 Sulfa (Sulfonamide Allergy Unknown HIVES Verified 01/02/19 14:16 Antibiotics) Medications Home Medications Medication Instructions Recorded Confirmed Last Taken albuterol sulfate 2 puff INHALATION QID PRN 01/02/19 01/02/19 Unknown ibuprofen 400 mg PO QID PRN 01/02/19 01/02/19 Unknown tramadol 50 - 100 mg PO Q6H PRN 01/02/19 01/02/19 Unknown Past Medical History Medical History Asthma STABLE Avascular bone necrosis REASON FOR PROCEDURE Osteoarthritis Past Surgical History Surgical History Fusion of spine C5-C6, L5-S1 History of cataract extraction with lens replacement B/L History of section History of surgery "TMJ" SURGERY History of tonsillectomy History of total hip arthroplasty RIGHT CHIDI= 12/01/17= SAB X 1 ATTEMPT AT [facility] Past Anesthesia History No Hx of Anesthesia Complications and No Family Hx of Anesthesia Complications History of PONV No Motion Sickness Screening History of Motion Sickness: No Social History Smoking Status: Never smoker Do You Dip or Chew Tobacco: No Hx Alcohol Use: Yes Alcohol type: other alcohol intake frequency: 0-2 drinks per day Alcohol Intake Frequency Comment: 1 DRINK PER DAY Hx Substance Use: No substance use type: does not use Exercise / Class Metabolic Activity II 4-5 Yardwork/Stairs/Walk up hill Review of Systems Patient denies chest pain, shortness of breath, dyspnea on exertion, cough, wheezing, palpitations. Physical Exam Vital Signs VITALS BP 126/85 P 92 TEMP 97.7 SP02 96%RA RESP 18 PHYSICAL Full neck and c-spine range of motion. Full TMJ range of motion. TMD 3 finger breaths Mallampati Score 2 Dentition: intact Lungs: clear throughout to auscultation Cardiac: regular rate and rhythm, no murmurs noted Spine: normal Carotid arteries: negative bruit Extremities: no edema Testing Electrocardiogram Date: 01/04/19 Findings: + NSR @ (84) Chest X-Ray Date: 01/05/19 Findings: + NAD Laboratory Results 01/05/19 15:19 01/05/19 15:19 Blood Type B Positive 01/05/19 15: Antibody Screen NEGATIVE 01/05/19 15: PT 9.8 Seconds (9.0-12.0) 01/05/19 15:19 INR 1.0 (0.9-1.1) 01/05/19 15:19 APTT 22.6 Seconds (21.0-31.0) 01/05/19 15:19 Urine Color Yellow 01/05/19 Unknown Urine Appearance Clear (Clear) 01/05/19 Unknown Urine pH 5.0 (4.5-7.5) 01/05/19 Unknown Ur Specific [place] 1.014 (1.000-1.030) 01/05/19 Unknown Urine Protein Negative (Negative) 01/05/19 Unknown Urine Glucose (UA) Negative (Negative) 01/05/19 Unknown Urine Ketones Negative (Negative) 01/05/19 Unknown Urine Nitrite Negative (Negative) 01/05/19 Unknown Ur Leukocyte Esterase 1+ (Negative) H 01/05/19 Unknown Urine WBC (Auto) 1-5 /hpf (0-5) 01/05/19 Unknown Urine RBC (Auto) 0-4 /hpf (0-4) 01/05/19 Unknown U Hyaline Cast (Auto) 1-5 /lpf (0-5) 01/05/19 Unknown U Epithel Cells (Auto) >30 /lpf (0-5) H 01/05/19 Unknown Urine Bacteria (Auto) Negative (Negative) 01/05/19 Unknown
--- NOTE | 2019-01-05 15:55 | XRay Report ---
XR chest Pre-admission PA/Lat CLINICAL HISTORY: Preoperative chest COMPARISON STUDY: October 2016 FINDINGS: The cardiac and mediastinal contours are normal. There is no evidence of focal pulmonary co nsolidation. There is no evidence of failure. No pleural effusions are visualized.[ Postsurgical hdz ges are present within the cervical spine. IMPRESSION: No active disease in the chest. Electronically signed by: Shamar Kinsey M.D. 01/05/2019 3:54 PM
[2019-01-05 15:56] LABS: Basophils # (auto) 0.06 K/uL (0-0.2); Basophils % (auto) 0.7 %; Eosinophils # (auto) 0.76 K/uL (0-0.5); Eosinophils % (auto) 8.6 %; Hematocrit (blood only) 40.2 % (37-47); Hemoglobin 13.4 g/dL (12.0-16.0); Immature Granulocytes # (auto) 0.03 K/uL (0.00-0.02); Immature Granulocytes % (auto) 0.3 %; Lymphocytes # (auto) 2.97 K/uL (1.2-3.4); Lymphocytes % (auto) 33.7 %; Mean Corpuscular Hgb Conc 33.3 g/dL (32-36); Mean Corpuscular Volume 100.2 fL (80-100); Mean Platelet Volume 9.5 fL (7.4-10.4); Monocytes # (auto) 0.44 K/uL (0.11-0.59); Neutrophils # (auto) 4.55 K/uL (1.4-6.5); Neutrophils % (auto) 51.7 %; Platelet Count 228 K/uL (130-400); RDW Coefficient of Variation 12.5 % (11.5-14.5); RDW Standard Deviation 45.6 fL (36.4-46.3); Red Blood Count 4.01 M/uL (4.2-5.4); White Blood Count 8.81 K/uL (4.8-10.8)
[2019-01-05 16:03] LABS: Albumin Level 3.9 gm/dl (3.4-5.0); BUN Creatinine Ratio 13.6 (10-20); Calcium 9.3 mg/dl (8.5-10.1); Est GFR (African American) 52.4; Est GFR (Non-African American) 45.2; Potassium 3.7 mmol/L (3.5-5.1)
[2019-01-05 16:05] LABS: Appearance Urine Clear (Clear); Bacteria Urine Automated Negative (Negative); Bilirubin Urine Negative (Negative); Blood Urine Trace (Negative); Color Urine Yellow; Epithelial Cell Urine Auto >30 /lpf (0-5); Glucose Urine UA Negative (Negative); Ketones Urine Negative (Negative); Leukocyte Esterase Urine 1+ (Negative); Nitrite Urine Negative (Negative); Protein Urine Negative (Negative); RBC Urine Automated 0-4 /hpf (0-4); Specific Gravity Urine 1.014 (1.000-1.030); Urobilinogen Urine Negative (Negative)
[2019-01-05 16:06] LABS: Albumin Globulin Ratio 1.2 (0.9-2); Bilirubin,Total 0.5 mg/dl (0.2-1); Globulin 3.2 gm/dl (2.5-4.0); Total Protein 7.1 gm/dl (6.4-8.2)
[2019-01-05 16:07] LABS: Partial Thromboplastin Ratio 0.8; Partial Thromboplastin Time 22.6 Seconds (21.0-31.0); Prothrombin Time 9.8 Seconds (9.0-12.0)
--- NOTE | 2019-01-14 14:20 | History & Physical Report ---
Date of Service January 14, 2019 Assessment & Plan (1) Degenerative joint disease of left hip: plan is to admit and undergo left CHIDI. History of Present Illness Chief Complaint: left hip pain Primary Care Provider: Nithin Man MD Pleasant female with avn left hip. Already had right hip replacmeent. Pt ready for left now after failing conservative measures. Allergies Allergy/AdvReac Type Severity Reaction Status Date / Time crab Allergy Unknown SWELLING Verified 01/02/19 14:16 Sulfa (Sulfonamide Allergy Unknown HIVES Verified 01/02/19 14:16 Antibiotics) Home Medications Home Medications Medication Instructions Recorded Confirmed Type albuterol sulfate 2 puff INHALATION QID PRN 01/02/19 01/02/19 History ibuprofen 400 mg PO QID PRN 01/02/19 01/02/19 History tramadol 50 - 100 mg PO Q6H PRN 01/02/19 01/02/19 History Past Med/Surg History Medical History Asthma STABLE Avascular bone necrosis REASON FOR PROCEDURE Osteoarthritis Surgical History Fusion of spine C5-C6, L5-S1 History of cataract extraction with lens replacement B/L History of section History of surgery "TMJ" SURGERY History of tonsillectomy History of total hip arthroplasty RIGHT CHIDI= 12/01/17= SAB X 1 ATTEMPT AT [facility] Social History Preferred Language: Cameroonian Communication Ability: Effective Gaming Department Head Required: No Beliefs That Will Affect Care: None Current Living Situation: Spouse Other Information That Helps Us Care for You: No Feels Safe at Home: Yes Safety Concerns: Feels Safe At This Time Smoking Status: Never smoker Do You Dip or Chew Tobacco: No Second Hand Exposure: No Tobacco Cessation Education Requested by Patient: No Hx Alcohol Use: Yes Alcohol type: other Hx Substance Use: No Review of Systems All systems reviewed & are unremarkable except as noted in HPI & below Physical Exam Constitutional: WD/WN, vitals as above Respiratory: normal respiratory effort, lungs clear to auscultation Cardiovascular: RRR, no murmur, no edema Gastrointestinal (Abdomen): normal bowel sounds, soft, nontender, no hepatosplenomegaly Musculoskeletal: Hip: + limited ROM of hip and + hip ROM with crepitation
[~2019-01-16 07:29] MED LIST changes: -ACET-24 PO; +ACETAMINOPHEN 500 MG TAB PO SCH; -ASPI-320 PO; -BIOT1CAP8 PO; +BUPIVACAINE 0.5 % 5 MG/1 ML PF 10ML VIAL ONE; -CALC600T9 PO; -CEFA500C2 PO; +CEFAZOLIN 1000MG 1,000 MG/7.5 ML SYR IV SCH; +CeleBREX 200 MG CAP PO SCH; -DIPH25CA65 PO; +FAMOTIDINE 20 MG TAB PO SCH; -GABA-113 PO; +LR 500ML BOLUS, THEN 15ML/HR IV SCH; +LR 60ML/HR IV SCH; +METOCLOPRAMIDE HCL 10 MG TABLET PO SCH; -NORE1TAB34 PO; -ONDA-170 PO; -PRD10 PO; -PRVHFAIN INH; +ROPIVACAINE 0.5% HCL/PF 150 MG, BUPIVACAINE 0.5% MPF 30 ML, EPINEPHrine 30MG/30ML (OR U... INFIL SCH; -TRAM-10 PO; +TRANEXAMIC ACID 1,000 MG **IV Intra-op IV SCH; +TRANEXAMIC ACID 1,000 MG **IV Pre-op IV SCH; +dexAMETHasone 4 MG TAB PO SCH
[2019-01-16] MEDS ORDERED: ePHEDrine sulfate 50 MG/ML AMP IV PRN (07:57)
[2019-01-16] MEDS ORDERED: ONDANSETRON INJ 2 MG/ML 2 ML VIAL IV PRN ×2 (07:57→12:00)
[2019-01-16] MEDS ORDERED: ATROPINE SULFATE 0.1 MG/ML 10ML SYR IV PRN (07:57)
[2019-01-16] MEDS ORDERED: fentaNYL citrate 100 MCG/2 ML VIAL IV PRN (07:57)
[2019-01-16] MEDS ORDERED: ALBUT/IPRATROP 3MG/0.5MG NEB 3 ML VIAL INH STA (07:58)
[2019-01-16] MEDS ORDERED: fentaNYL citrate 100 MCG/2 ML VIAL ONE (08:06)
[2019-01-16] MEDS ORDERED: MIDAZOLAM HCL 1 MG/ML 2ML VIAL ONE ×2 (08:06→09:25)
--- NOTE | 2019-01-16 08:09 | History & Physical Bridge Note ---
Date of Service January 16, 2019 History & Physical Bridge Note I have examined the patient, reviewed the History & Physical and in the interval since the performance of the History & Physical I have noted the following changes of clinical significance: no changes noted
[2019-01-16] MEDS ORDERED: POVIDONE-IODINE OP SOLN 30 ML BTL ONE (08:29)
[2019-01-16] MEDS ORDERED: BACITRACIN INJ 50,000 UNIT VIAL ONE (08:29)
[2019-01-16] MEDS ORDERED: ORTHO JOINT ANESTHETIC ONE (08:29)
[2019-01-16] MEDS ORDERED: ONDANSETRON INJ 2 MG/ML 2 ML VIAL ONE (09:43)
[2019-01-16] MEDS ORDERED: PROPOFOL IV EMULSION 10 MG/ML 20 ML VIAL IV ONE (09:43)
[2019-01-16] MEDS ORDERED: LIDOCAINE HCL 2% 2 ML VIAL/AMP(20MG/ML) INFIL ONE (09:43)
[2019-01-16] MEDS ORDERED: PHENYLEPHRINE HCL 10 MG/ML VIAL ONE (09:44)
[2019-01-16] MEDS ORDERED: PHENYLEPHRINE 100MCG/ML 5ML SYR ONE (09:44)
--- NOTE | 2019-01-16 10:11 | Operative Report ---
Post Operative Report Pre & Post Diagnosis Operation Date: 01/16/19 09:40 Pre-Op Diagnosis: Left Hip Osteoarthritis Post-Op Diagnosis: Left Hip Osteoarthritis Procedure Operation Date: 01/16/19 09:40 Actual Procedures p Left Total Hip Arthroplasty(Left) - Osmin Gonzalez Surgeon Osmin Gonzalez Zoo Director Zack Argueta PA-C Estimated Blood Loss 30 Findings Consistent with Post-Op Diagnosis Specimens None Complications none Disposition Accompanied Patient To Recovery: No Disposition: Recovery Room Description of Procedure IMPLANTS USED: Ramona size 52 mm acetabular cup, one acetabular screw, a #3 Accolade 2 stem with a 127 degree neck, 36 mm X3 elevated liner, 36 mm +0 ceramic head INDICATIONS: Mrs. Tovar is a pleasant female who has unfortunately failed all forms of conservative measures. Therefore, they have has decided to undergo elective surgical intervention. All risks and benefits of the surgery were discussed with the patient and the family in entirety. PROCEDURE: The patient was brought to the operating room and properly identified by myself, anesthesia, and staff. Patient was given a spinal anesthetic and placed on the operating table with the left hip up. The hip was then prepped and draped in the standard orthopedic fashion. We made a standard posterolateral approach over the greater trochanteric area. We then dissected down to subcutaneous tissue until the fascia was identified. We incised the fascia in line with the skin incision. We then split the gluteus kieran muscles with finger dissection. We then put the Charnley retractor in place. We placed the retractor underneath the gluteus medius to expose the piriformis. The piriformis was then tagged with a tag suture and released from the insertion from the greater trochanteric area with the use of electrocautery. We then p erformed a T capsulotomy and the femoral head and neck were atraumatically dislocated. We then performed femoral neck osteotomy at the pre-template site. We removed the femoral head and neck without difficulty. We then placed the retractor around the acetabulum. We then began to ream the acetabulum to the appropriate size. We then impacted the cup into place and had a very good fixation within the pelvis. We then put the liner in place as well. Then using multiple size approaches from the Accolade 2 system a size ##3 fit very nicely in the proximal femur. I then put trial components in place. WE had very good range of motion, excellent stability, and excellent leg length equality. We removed the trial components and irrigated the wound. We then impacted the components in place and irrigated the wound once more. We then closed the capsule and fascia with a 0 Vicryl suture, the deep dermis with 2-0 Vicryl suture, and finally the skin with a running 3-0 Vicryl subcuticular stitch. A sterile dressing was applied. The patient was taken to the recovery room in stable condition. Due to the complex nature of the procedure, the entire surgery was performed with the operational assistance of Zack Argueta PA-C. The speech language pathology assistant was under direct supervision, was involved in the actual performance of all aspects of the surgical procedure including hemostasis, tissue retraction and incision, instrument management, patient positioning, and wound closure. I attest to the content of the Intraoperative Record and any orders documented therein. Any exceptions are noted below.
--- NOTE | 2019-01-16 11:56 | Anesthesiology Progress Note ---
Date of Service January 16, 2019 Anesthesia Post Procedure Vital Signs Vital Signs: Temp Pulse Pulse Resp BP Pulse Ox 01/16/19 11:25 37.6 C H 84 17 121/65 100 01/16/19 11:15 86 16 109/78 100 01/16/19 11:05 87 17 101/64 100 01/16/19 10:55 87 17 108/55 L 99 01/16/19 10:45 86 17 108/64 100 01/16/19 10:36 36.7 C 87 17 89/57 L 100 01/16/19 08:10 93 H 16 97 01/16/19 08:05 36.7 C 93 H 18 136/84 96 Notes Mental Status: alert / awake / arousable Patient Amnestic to Procedure: Yes Nausea / Vomiting: adequately controlled Pain: adequately controlled Airway Patency, RR, SpO2: stable & adequate BP & HR: stable & adequate Hydration State: stable & adequate Neuraxial Anesthesia: was administered and sensory block is resolving Anesthetic Complications: no major complications apparent and Pt Satisfied with anesthetic care
[2019-01-16] MEDS ORDERED: BISACODYL 10 MG SUPP PR PRN (12:00)
[2019-01-16] MEDS ORDERED: METOCLOPRAMIDE HCL INJ 5 MG/ML 2 ML VIAL IV PRN (12:00)
[2019-01-16] MEDS ORDERED: ALBUTEROL HFA 8 GM INHALER INH PRN (12:00)
[2019-01-16] MEDS ORDERED: NALOXONE HCL 0.4 MG/1 ML VIAL/CARP IV PRN (12:00)
[2019-01-16] MEDS ORDERED: MAGNESIUM HYDROXIDE SUSP 30 ML UDC PO PRN (12:00)
[2019-01-16] MEDS: SODIUM CHLORIDE 0.9% 1000ML 1,000 ML IV SCH ×2 (12:20→21:40)
[2019-01-16] MEDS: ACETAMINOPHEN 500 MG TAB PO SCH ×2 (13:08→21:57)
[2019-01-16] MEDS ORDERED: TRANEXAMIC ACID 1,000 MG in 0.9 % SODIUM CHLORIDE 100 ML IV SCH (16:00)
[2019-01-16] MEDS: OXYCODONE HCL IR 5 MG TAB (IMMEDIATE RELEASE) PO PRN ×2 (17:10→22:12)
[2019-01-16] MEDS: CEFAZOLIN 2000MG 2,000 MG/15 ML SYR IV SCH (17:10)
[2019-01-16] MEDS ORDERED: SENNA 8.6 MG TAB PO SCH (21:00)
[2019-01-16] MEDS: DOCUSATE SODIUM 100 MG CAP PO SCH (21:56)
[2019-01-16] MEDS: ASPIRIN 81 MG ECTAB PO SCH (21:56)
[2019-01-17] MEDS: CEFAZOLIN 2000MG 2,000 MG/15 ML SYR IV SCH (00:33)
[2019-01-17] MEDS: TRAMADOL HCL 50 MG TABLET PO PRN ×3 (04:14→14:43)
[2019-01-17] MEDS: ACETAMINOPHEN 500 MG TAB PO SCH ×2 (05:33→13:50)
[2019-01-17 05:43] LABS: Basophils # (auto) 0.01 K/uL (0-0.2); Basophils % (auto) 0.1 %; Eosinophils # (auto) 0.01 K/uL (0-0.5); Eosinophils % (auto) 0.1 %; Hematocrit (blood only) 34.5 % (37-47); Hemoglobin 11.6 g/dL (12.0-16.0); Immature Granulocytes # (auto) 0.04 K/uL (0.00-0.02); Immature Granulocytes % (auto) 0.3 %; Lymphocytes # (auto) 1.11 K/uL (1.2-3.4); Lymphocytes % (auto) 9.7 %; Mean Corpuscular Hgb Conc 33.6 g/dL (32-36); Mean Corpuscular Volume 100.9 fL (80-100); Mean Platelet Volume 9.2 fL (7.4-10.4); Monocytes # (auto) 0.68 K/uL (0.11-0.59); Monocytes % (auto) 5.9 %; Neutrophils % (auto) 83.9 %; Platelet Count 213 K/uL (130-400); RDW Coefficient of Variation 12.2 % (11.5-14.5); RDW Standard Deviation 44.6 fL (36.4-46.3); Red Blood Count 3.42 M/uL (4.2-5.4); White Blood Count 11.45 K/uL (4.8-10.8)
[2019-01-17 06:22] LABS: BUN Creatinine Ratio 10.3 (10-20); Calcium 8.3 mg/dl (8.5-10.1); Creatinine Clr Calc Pharmacy 55.2 ml/min; Est GFR (Non-African American) 57.8; Potassium 3.9 mmol/L (3.5-5.1)
[2019-01-17] MEDS ORDERED: dexAMETHasone 10 MG in SYRINGE 0 ML IV SCH (08:00)
--- NOTE | 2019-01-17 08:23 | Anesthesiology Progress Note ---
Date of Service January 17, 2019 Anesthesia Post Procedure Vital Signs Vital Signs: Temp Pulse Pulse Resp BP Pulse Ox 01/17/19 07:30 36.6 C 86 15 156/79 H 99 01/16/19 23:03 36.8 C 89 16 134/74 99 01/16/19 19:13 36.7 C 92 H 16 131/79 97 01/16/19 15:19 36.7 C 92 H 16 111/65 98 01/16/19 14:52 36.8 C 93 H 17 101/67 97 01/16/19 13:40 103 H 16 99/64 L 97 01/16/19 12:46 102 H 16 142/69 H 95 01/16/19 12:16 36.7 C 88 17 97/63 L 100 01/16/19 11:45 36.7 C 84 13 110/74 100 01/16/19 11:25 37.6 C H 84 17 121/65 100 01/16/19 11:15 86 16 109/78 100 01/16/19 11:05 87 17 101/64 100 01/16/19 10:55 87 17 108/55 L 99 01/16/19 10:45 86 17 108/64 100 01/16/19 10:36 36.7 C 87 17 89/57 L 100 Pain Intensity Left Hip: Pain Intensity: 6 Notes Mental Status: alert / awake / arousable Patient Amnestic to Procedure: Yes Nausea / Vomiting: adequately controlled Pain: improving with treatment (pt states tramadol has been working best for her pain; ) Airway Patency, RR, SpO2: stable & adequate BP & HR: stable & adequate Hydration State: stable & adequate Anesthetic Complications: no major complications apparent
[2019-01-17] MEDS: ASPIRIN 81 MG ECTAB PO SCH (08:40)
[2019-01-17] MEDS: DOCUSATE SODIUM 100 MG CAP PO SCH (08:40)
[2019-01-17] MEDS ORDERED: ESCITALOPRAM OXALATE 10 MG TAB PO SCH (09:00)
--- NOTE | 2019-01-17 10:04 | Orthopedic Progress Note ---
Date of Service January 17, 2019 Assessment & Plan (1) Degenerative joint disease of left hip: Patient is postop day 1 status post left total hip arthroplasty. Begin PT and OT protocols. Weightbearing as tolerated. DVT prophylaxis with aspirin, SCDs and KRYS hose. Continue current pain management. DC planning-patient is planning for home health services upon discharge. Subjective Patient is postop day 1 status post left total hip arthroplasty. Patient is currently lying in bed and is awake and alert. She states that she is having some pain this morning. She states that the little more pain than she had from her previous hip arthroplasty on the right. She says that when she was up to the bathroom, that the hip felt " a little loose"? She had no other complaints at this time. She denies shortness of breath, chest pain, lighthe adedness. Physical Exam Physical Exam: Dressings are clean, dry, intact. Calves are soft nontender. Neurovascular intact. Toes are mobile. Leg lengths appear equal. Results & Data Vital Signs (Past 12 Hours) Vital Signs Temp Pulse Resp BP Pulse Ox 01/17/19 07:30 36.6 C 86 15 156/79 H 99 01/16/19 23:03 36.8 C 89 16 134/74 99 Laboratory Results Laboratory Results WBC 11.45 K/uL (4.8-10.8) H 01/17/19 05:22 RBC 3.42 M/uL (4.2-5.4) L 01/17/19 05:22 Hgb 11.6 g/dL (12.0-16.0) L 01/17/19 05:22 Hct 34.5 % (37-47) L 01/17/19 05:22 MCV 100.9 fL (80-100) H 01/17/19 05:22 MCH 33.9 pg (25-34) 01/17/19 05:22 MCHC 33.6 g/dL (32-36) 01/17/19 05:22 RDW Std Deviation 44.6 fL (36.4-46.3) 01/17/19 05:22 RDW Coeff of Dino 12.2 % (11.5-14.5) 01/17/19 05:22 Plt Count 213 K/uL (130-400) 01/17/19 05:22 MPV 9.2 fL (7.4-10.4) 01/17/19 05:22 Immature Gran % (Auto) 0.3 % 01/17/19 05:22 Neut % (Auto) 83.9 % 01/17/19 05:22 Lymph % (Auto) 9.7 % 01/17/19 05:22 [place] % (Auto) 5.9 % 01/17/19 05:22 Eos % (Auto) 0.1 % 01/17/19 05:22 Baso % (Auto) 0.1 % 01/17/19 05:22 Immature Gran # (Auto) 0.04 K/uL (0.00-0.02) H 01/17/19 05:22 Neut # (Auto) 9.60 K/uL (1.4-6.5) H 01/17/19 05:22 Lymph # (Auto) 1.11 K/uL (1.2-3.4) L 01/17/19 05:22 [place] # (Auto) 0.68 K/uL (0.11-0.59) H 01/17/19 05:22 Eos # (Auto) 0.01 K/uL (0-0.5) 01/17/19 05:22 Baso # (Auto) 0.01 K/uL (0-0.2) 01/17/19 05:22 PT 9.8 Seconds (9.0-12.0) 01/05/19 15:19 INR 1.0 (0.9-1.1) 01/05/19 15:19 APTT 22.6 Seconds (21.0-31.0) 01/05/19 15:19 PTT Ratio 0.8 01/05/19 15:19 Sodium 142 mmol/L (136-145) 01/17/19 05:22 Potassium 3.9 mmol/L (3.5-5.1) 01/17/19 05:22 Chloride 111 mmol/L (98-107) H 01/17/19 05:22 Carbon Dioxide 22 mmol/L (21-32) 01/17/19 05:22 Anion Gap 9.0 (3-11) 01/17/19 05:22 BUN 11 mg/dl (7-18) 01/17/19 05:22 Creatinine 1.06 mg/dl (0.6-1.2) 01/17/19 05:22 Est Cr Clr Drug Dosing 55.2 ml/min 01/17/19 05:22 Est GFR ( Amer) 67.0 01/17/19 05:22 Est GFR (Non-Af Amer) 57.8 01/17/19 05:22 BUN/Creatinine Ratio 10.3 (10-20) 01/17/19 05:22 Glucose 164 mg/dl (70-99) H 01/17/19 05:22 Calcium 8.3 mg/dl (8.5-10.1) L 01/17/19 05:22 Total Bilirubin 0.5 mg/dl (0.2-1) 01/05/19 15: AST 30 U/L (15-37) 01/05/19 15: ALT 37 U/L (12-78) 01/05/19 15: Alkaline Phosphatase 64 U/L (45-117) 01/05/19 15:19 Total Protein 7.1 gm/dl (6.4-8.2) 01/05/19 15:19 Albumin 3.9 gm/dl (3.4-5.0) 01/05/19 15:19 Globulin 3.2 gm/dl (2.5-4.0) 01/05/19 15: Albumin/Globulin Ratio 1.2 (0.9-2) 01/05/19 15:19 Urine Color Yellow 01/05/19 Unknown Urine Appearance Clear (Clear) 01/05/19 Unknown Urine pH 5.0 (4.5-7.5) 01/05/19 Unknown Ur Specific Empire 1.014 (1.000-1.030) 01/05/19 Unknown Urine Protein Negative (Negative) 01/05/19 Unknown Urine Glucose (UA) Negative (Negative) 01/05/19 Unknown Urine Ketones Negative (Negative) 01/05/19 Unknown Urine Blood Trace (Negative) H 01/05/19 Unknown Urine Nitrite Negative (Negative) 01/05/19 Unknown Urine Bilirubin Negative (Negative) 01/05/19 Unknown Urine Urobilinogen Negative (Negative) 01/05/19 Unknown Ur Leukocyte Esterase 1+ (Negative) H 01/05/19 Unknown Urine WBC (Auto) 1-5 /hpf (0-5) 01/05/19 Unknown Urine RBC (Auto) 0-4 /hpf (0-4) 01/05/19 Unknown U Hyaline Cast (Auto) 1-5 /lpf (0-5) 01/05/19 Unknown U Epithel Cells (Auto) >30 /lpf (0-5) H 01/05/19 Unknown Urine Bacteria (Auto) Negative (Negative) 01/05/19 Unknown Nasal Screen MRSA (PCR) Negative (Negative) 01/05/19 Unknown Blood Type B Positive 01/05/19 15:19 Antibody Screen NEGATIVE 01/05/19 15:19
--- NOTE | 2019-01-21 01:31 | Discharge Summary ---
DISCHARGE DIAGNOSIS: Left hip osteoarthritis. SECONDARY DIAGNOSES: Asthma, avascular bone necrosis and osteoarthritis. CONSULTS: None. COMPLICATIONS: None. PROCEDURES: Left total hip arthroplasty performed by Dr. Gonzalez on 01/16/2019. BRIEF HISTORY: As dictated in the history and physical. HOSPITAL SUMMARY: The patient was admitted on the above date and had the above noted surgery performed which she tolerated well. On the first postoperative day, she was currently lying in bed and was awake, alert and stated that she was having pain that morning. She stated that she had a little more pain in this hip than her previous hip arthroplasty on the right side. She stated that when she was up to the bathroom that the hip felt a little loose. She had no other complaints at the time. Denies shortness of breath, chest pain or lightheadedness. Dressings clean, dry and intact. Calves were soft and nontender. Neurovascularly intact. Toes were mobile. Leg lengths appeared equal. Vital signs were stable and she is afebrile. Hemoglobin is 9.6. She was started on physical therapy protocol, continued on deep venous thrombosis prophylaxis and pain management. She continued to progress with her physical therapy and the discomfort she was feeling was not hindering her ambulation and she was doing well and by the afternoon of 01/17/2019, it was felt she could be discharged to home. For further review, please see chart. LABORATORY AND X-RAY DATA: As per chart. DISCHARGE INSTRUCTIONS: The patient was discharged home on 01/17/2019. DIET: Regular. ACTIVITY: Weightbearing as tolerated, left lower extremity with walker. Follow [facility] instruction sheets and special care instructions as noted and follow up with Dr. Gonzalez in 2 weeks. The patient is to call for appointment if was not made for. DISCHARGE MEDICATIONS: Acetaminophen 1000 mg p.o. q. 8 hours, aspirin 81 mg p.o. b.i.d., cefadroxil 500 mg p.o. b.i.d. and sennosides 17.2 mg p.o. at bedtime. Resume home medications as listed.
--- OUTSIDE RECORDS SUMMARY | 2019-01-23 14:26 | External Medical Summary | Continuity of Care Document ---
:1960 Author Name Kal Galicia, Provider Address Unavailable Unavailable , Care Team Providers Name Role Phone Lonny Galicia, [email or web address] LETY SANTANA Unavailable Unavailable Unavailable Unavailable Unavailable Problems Seborrheic keratosis (702.19) (L82.1) Lentigines (709.09) (L81.4) Benign nevus of skin (216.9) (D22.9) Sebaceous hyperplasia (706.8) (L73.8) Neoplasm of uncertain behavior of skin (238.2) (D48.5) Benign keratosis (702.19) (L57.0) Rosacea (695.3) (L71.9) Allergies and Adverse Reactions Shellfish-derived Products (Allergy) Sulfa Drugs (Allergy) Medications traMADol HCl - 50 MG Oral Tablet Refills: 0 Jinteli 1-5 MG-MCG Oral Tablet Refills: 0 Finacea 15 % External Gel; APPLY SPARING LY AND MASSAGE IN WELL TO AFFECTED AREA(S) TWICE DAILY. Grayson Mukherjee Start: 24-Aug-2016 Quantity: 1 50 GM Tube Refills: 2 Procedures History of Total Abdominal Hysterectomy Status: Completed History of Back Surgery Status: Complete d History of temporomandibular joint surgery Status: Completed History of Tonsillectomy Status: Complet ed History of Section Status: Comp leted Immunizations Immunizations not documented Family History Mother Family history of diabetes mellitus (V18.0) (Z83.3) Status: Active Father Family history of diabetes mellitus (V18.0) (Z83.3) Status: Active Family history of chronic obstructive pulmonary disease (V17 .6) Status: Active (Z82.5) Social History - Smoking Status Never smoker Plan of Treatment Planned Encounters Appointment; Tacho Bravo M.D. Start: 15-Jan-2020 15:00 R equest Planned Observations Planned Goals not documented Results No Known Results Results not documented Encounters Appointment; Tacho Bravo M.D. 09-Jan-2019 15:30 Encounter Diagnosis: Problem not documented Appointment; Ame Cao PA-C 01-Jun-2018 13:30 Encounter Diagnosis: Problem not documented Appointment; Nithin Mukherjee M.D. 09-Aug-2017 15:00 Encounter Diagnosis: Problem not documented Appointment; Nithin Mukherjee M.D. 09-Feb-2017 15:20 Encounter Diagnosis: Problem not documented Appointment; Tacho Bravo M.D. 15-Jan-2020 15:00 Encounter Diagnosis: Problem not documented
== END 2019-01-17 15:20 | disposition home health service (06) | DRG 470 ==
LOC: ASU 07:29 → 3E 11:55